=== PATIENT | female | born 1950 | race Caucasian/White ===

== ENCOUNTER 2021-07-19 14:29 | Outpatient (CLI) | payer MEDICARE, SELFPAY ==
--- NOTE | ~2021-07-19 | MM_ITS ---
EXAMINATION: MM screening heidy BI w david HISTORY: Screening TECHNIQUE: Craniocaudal and mediolateral oblique 3-D tomosynthesis images were obtained and synthetic 2-D images were generated. CAD analysis was submitted and interpreted. COMPARISON: 02/18/2019 BREAST PARENCHYMAL COMPOSITION: There are scattered areas of fibroglandular density. FINDINGS: There is no evidence of suspicious mass, calcification, or architectural distortion to sugg est malignancy in either breast. There has been no suspicious interval change. IMPRESSION: 1. No mammographic evidence of malignancy. 2. Recommend routine screening mammography in one year. BI-RADS Category 1: Negative Reviewed, dictated and finalized at location A.
== END 2021-07-19 14:30 | disposition home or self-care (01) ==
LOC: ANHIMG 14:35
DX: Z12.31 Encounter for screening mammogram for malignant neoplasm of breast (principal)
CPT/HCPCS: 77063; 77067

== ENCOUNTER 2022-09-27 10:09 | Outpatient (CLI) | payer MEDICARE, SELFPAY ==
--- NOTE | ~2022-09-27 | MM_ITS ---
EXAMINATION: MM screening heidy BI w david HISTORY: Screening mammogram, family history of breast cancer in her mother. TECHNIQUE: Craniocaudal and mediolateral oblique 3-D tomosynthesis images were obtained and synthetic 2-D images were generated. CAD analysis was submitted and interpreted. COMPARISON: 07/19/2021, 02/18/2019 BREAST PARENCHYMAL COMPOSITION: The breasts are almost entirely fatty. FINDINGS: No suspicious mass, calcification, or architectural distortion are identified in either scarlet ast to suggest malignancy. There has been no suspicious interval change. IMPRESSION: 1. No mammographic evidence of malignancy. 2. Recommend routine screening mammography in one year. BI-RADS Category 1: Negative Reviewed, dictated and finalized at location A. SHOVELER
== END 2022-09-27 10:10 | disposition home or self-care (01) ==
DX: Z12.31 Encounter for screening mammogram for malignant neoplasm of breast (principal)
CPT/HCPCS: 77063; 77067

== ENCOUNTER 2024-02-06 15:24 | Outpatient (CLI) | payer MEDICARE, SELFPAY ==
--- NOTE | ~2024-02-06 | DEXA_ITS ---
Bone Density Report Name: JADYN GALINDO Age: 73 Sex: Female Ethnicity: White Date of : 1950 Indication: postmenopausal; screening for osteoporosis; hysterectomy; Referring Provider: UNKNOWN, UNKNOWN Study: Bone densitometry was performed. Exam Date: February 06, 2024 Accession number: [id number] Bone Density: Region BMD T-score Z-score Classification Femoral Neck (Left) 0.555 -2.6 -0.7 Osteoporosis Total Hip (Left) 0.607 -2.7 -1.1 Osteoporosis Femoral Neck (Right) 0.645 -1.8 0.1 Osteopenia Total Hip (Right) 0.703 -2.0 -0.4 Osteopenia Total Hip Mean 0.655 -2.4 -0.8 Osteopenia World Health Organization criteria for BMD impression classify patients as: Normal (T-score at or above -1.0), Osteopenia (T-score between -1.0 and -2.5), or Osteoporosis (T-score at or below -2.5). 10-year Fracture Risk: FRAX not reported because: Some T-score for Spine Total or Hip Total or Femoral Neck at or below -2.5 Clinical Information Provided by Patient: Has used the following medications: Vitamin D Has the following medical conditions: Hysterectomy Patient maximum height was 62 Menopause Age: 42 No regular weight bearing exercise Drinks caffeinated beverages Onset of menses at age 11.5 Number of children 3 Impression: The patient has osteoporosis, based on the Left Total Hip T-score. Discussion: INCREASED RISK OF FRACTURE. BONE DENSITY IS UNDESIRABLY LOW AT ONE OR MORE SKELETAL SITES, CONSISTENT WITH POSTMENOPAUSAL OSTEOPOROSIS. This patient's lowest T-score meets the World Health Organization's (WHO) criteria for osteoporosis at one or more sites (T-score -2.5 or below). In untreated patients, the risk of osteoporotic fracture increases approximately two-fold for each 1.0 SD decrease in T-score. Low bone density is not the only risk factor for fracture; also consider factors such as patient's age, frailty or poor health, risk of falling, risk of injury, previous osteoporotic fracture, family history of osteoporosis, cigarette smoking, low body weight, etc. Not everyone with low bone mineral density has osteoporosis; osteomalacia and other metabolic bone disorders should also be considered. Patients who have osteoporosis should be evaluated for specific diseases and conditions (secondary causes) that may cause or contribute to bone loss. The [place] Association of Clinical Endocrinologists (AACE) and National Osteoporosis Foundation (NOF) recommend pharmacologic intervention for all postmenopausal women whose T-score is in this range. The patient should follow a healthful lifestyle (good nutrition with adequate calcium and vitamin D, and appropriate weight-bearing exercise). Follow-Up: Consider a repeat BMD and Vertebral Fracture Assessment (VFA) exam in 2 years or sooner if medically necessary, to reassess this patient'
--- NOTE | ~2024-02-06 | MM_ITS ---
EXAMINATION: MM screening heidy BI w david HISTORY: Screening TECHNIQUE: Craniocaudal and mediolateral oblique 3-D tomosynthesis images were obtained and synthetic 2-D images were generated. CAD analysis was submitted and interpreted. COMPARISON: Comparison to multiple prior studies sequentially, with oldest reviewed study dated 10/2018. BREAST PARENCHYMAL COMPOSITION: Not dense: There are scattered areas of fibroglandular density. FINDINGS: There is no evidence of suspicious mass, calcification, or architectural distortion to sugg est malignancy in either breast. There has been no suspicious interval change. IMPRESSION: 1. No mammographic evidence of malignancy. 2. Recommend routine screening mammography in one year. BI-RADS Category 1: Negative Reviewed, dictated and finalized at location B.
== END 2024-02-06 15:25 | disposition home or self-care (01) ==
DX: Z12.31 Encounter for screening mammogram for malignant neoplasm of breast (principal); Z78.0 Asymptomatic menopausal state; M81.0 Age-related osteoporosis without current pathological fracture; M85.851 Other specified disorders of bone density and structure, right thigh
CPT/HCPCS: 77063; 77067; 77080

== ENCOUNTER 2025-03-12 13:25 | Outpatient (CLI) | payer MEDICARE, SELFPAY ==
--- NOTE | ~2025-03-12 | MM_ITS ---
EXAMINATION: MM screening heidy BI w david HISTORY: Screening TECHNIQUE: Craniocaudal and mediolateral oblique 3-D tomosynthesis images were obtained and synthetic 2-D images were generated. CAD analysis was submitted and interpreted. COMPARISON: Comparison to multiple prior studies sequentially, with oldest reviewed study dated 10/2018. BREAST PARENCHYMAL COMPOSITION: Not dense: There are scattered areas of fibroglandular density. FINDINGS: There is no evidence of suspicious mass, calcification, or architectural distortion to sugg est malignancy in either breast. There has been no suspicious interval change. IMPRESSION: 1. No mammographic evidence of malignancy. 2. Recommend routine screening mammography in one year. BI-RADS Category 1: Negative Reviewed, dictated and finalized at location B.
--- OUTSIDE RECORDS SUMMARY | 2025-03-12 13:28 | XMS_ITS | Encounter Summary ---
Author Organization [facility] Address [address] [place] [address] Care Team Providers Care Vegetable Grader Name Role Phone Keith Gentile MD Primary Care Provider [phone] Encounter Details Date Type Department Care Team (Late st Contact Info) Description 03/05/2006 Outpatient Historical [facility] Internal Medicine - [place] [address] [place] [address] [place] [address] [place] [address] Social History Tobacco Use Types Packs/Day Years Used Date Smoking Tobacco: Never Assessed Comments Unknown Sex and Gender Information Value Date Recorded Sex Assigned at Female 07/24/2024 7:16 PM CDT 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 [place] [address] Keith Gentile MD 1000 [facility] [address] [place] [address] documented as of this encounter Visit Diagnoses Not on filedocumented in this encounter Additional Health Concerns Infection Onset Date Last Indicated Resolved Time R/O COVID-19 05/03/2022 05/03/2022 05/10/2022 1:16 AM CDT documented as of this encounter Care Teams Vegetable Grader Relationship Specialty Start Date End Date Keith Gentile MD [address] [place] [address] PCP - General Internal Medicine 03/22/15 documented as of this encounter
--- OUTSIDE RECORDS SUMMARY | 2025-03-12 13:28 | XMS_ITS | Encounter Summary ---
Author Organization [facility] Address 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 [place] [address] Keith Gentile MD 1000 [facility] [address] [place] [address] documented as of this encounter Visit Diagnoses Diagnosis Displacement of lumbar intervertebral disc without myelopathy- Primary documented in this encounter Additional Health Concerns Infection Onset Date Last Indicated Resolved Time R/O COVID-19 05/03/2022 05/03/2022 05/10/2022 1:16 AM CDT documented as of this encounter Care Teams Linoleum Floor Installer Relationship Specialty Start Date End Date Keith Gentile MD [address] [place] [phone] PCP - General Internal Medicine 03/22/15 documented as of this encounter
--- OUTSIDE RECORDS SUMMARY | 2025-03-12 13:28 | XMS_ITS | Encounter Summary ---
Author Organization [facility] Address [address] [place] [address] Care Team Providers Care In Home Baby Sitter Name Role Phone Keith Gentile MD Primary Care Provider [phone] Encounter Details Date Type Department Care Team (Late st Contact Info) Description 10/23/2006 Orders Only [facility] Internal Medicine - [place] [address] [place] [address] [place] [address] [place] [phone] Social History Tobacco Use Types Packs/Day Years Used Date Smoking Tobacco: Never Assessed Comments Unknown Sex and Gender Information Value Date Recorded Sex Assigned at Female 07/24/2024 7:16 PM CDT 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 LAST VISIT: 10.07.06 PCP: robel. ALTERNATIVE PHONE NUMBER: [phone] WHO CALLED: Patient called. CURRENT ALLERGY LIST: [facility] NUMBER: [phone] SECTION 1: REQUESTED ACTION [email or web address] 10/23/06 at 11:18 am: NEXT STEP: Patient is no better and wants to know the next step. still having discomfort but not the pain she was having...she is relieving with tylenol. napracin worked..but supplemented with tylenol. so she quit the napacin and now is taking the celebrex. pt is requesting medrol pack because the epidural shot on 09-23-06 is wearing off. she has surgery on 11.01.06 but needs something to get her through until then. please advise? SECTION 2: DOCTOR`S RESPONSE: gabriela 10/23/06 at 12:58 pm MEDICATIONS: MEDROL (UBALDO) ORAL TABLET 4 MG, as directed, 1 Dispensed, status: NEW PRESCRIPTION, 10/23/2006. FINAL ACTION: radha 10/23/06 at 01:49 pm Called pharmacy at 10/23/06 at 01:49 pm. hr Electronically Signed by: Rupali Pete on Monday, October 23, 2006 documented in this encounter Plan of Treatment Upcoming Encounters Date Type Department Care Team (Late st Contact Info) Description 08/16/2025 11:00 AM CDT Office Visit [facility] Care - [facility], [place] [place] [address] [place] [address] Keith Gentile MD [address] [place] [address] [place] [address] documented as of this encounter Visit Diagnoses Not on filedocumented in this encounter Additional Health Concerns Infection Onset Date Last Indicated Resolved Time R/O COVID-19 05/03/2022 05/03/2022 05/10/2022 1:16 AM CDT documented as of this encounter Care Teams In Home Baby Sitter Relationship Specialty Start Date End Date Keith Gentile MD [address] [place] [address] [place] [address] PCP - General Internal Medicine 03/22/15 documented as of this encounter
--- OUTSIDE RECORDS SUMMARY | 2025-03-12 13:28 | XMS_ITS | Encounter Summary ---
Author Organization [facility] Address [address] [place] [address] Care Team Providers Care Formation Fracturing Operator Name Role Phone Keith Gentile MD Primary Care Provider [phone] Encounter Details Date Type Department Care Team (Late st Contact Info) Description 02/28/2007 Orders Only [facility] Internal Medicine - [place] [address] [place] [address] [place] [address] [place] [phone] Social History Tobacco Use Types Packs/Day Years Used Date Smoking Tobacco: Never Assessed Comments Unknown Sex and Gender Information Value Date Recorded Sex Assigned at Female 07/24/2024 7:16 PM CDT Legal Sex Female 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 WHO TOOK THE CALL: Rupali Pete A GENERAL INFORMATION PATIENT STATUS: Established Patient. LAST VISIT: 10-07-06 PCP: robel WHO CALLED: Patient called. ALTERNATIVE PHONE NUMBER: [phone] CURRENT ALLERGY LIST: [facility] NUMBER: [phone] SECTION 1: REQUESTED ACTION danielle 02/28/07 at 10:44 am: MEDICATION REQUEST: MEDICATION REQUEST: Patient requests a refill. MEDICATIONS: CELEBREX ORAL CAPSULE CONVENTIONAL 200 MG, 1 Two Times A Day, As Needed, 180 Dispensed, 3 Fills, status: NEW PRESCRIPTION, 02/15/2006, Comment: pa [phone] 9:43am df. ok to refill? RN/COMBINATION MACHINE TOOL SETTER RESPONSE: kory 02/28/07 at 11:28 am Refill this time only, no additional. FINAL ACTION: forndl 02/28/07 at 12:35 pm Called pharmacy at 02/28/07 at 12:35 pm. df/vm Electronically Signed by: Dionne Duran on Wednesday, February 28, 2007 documented in this encounter Plan of Treatment Upcoming Encounters Date Type Department Care Team (Late st Contact Info) Description 08/16/2025 11:00 AM CDT Office Visit [facility] Primary Care - [facility], [address] [place] [address] Keith Gentile MD [address] [place] [address] documented as of this encounter Visit Diagnoses Not on filedocumented in this encounter Additional Health Concerns Infection Onset Date Last Indicated Resolved Time R/O COVID-19 05/03/2022 05/03/2022 05/10/2022 1:16 AM CDT documented as of this encounter Care Teams Formation Fracturing Operator Relationship Specialty Start Date End Date Keith Gentile MD [address] [place] [address] PCP - General Internal Medicine 03/22/15 documented as of this encounter
--- OUTSIDE RECORDS SUMMARY | 2025-03-12 13:28 | XMS_ITS | Encounter Summary ---
Author Organization [facility] Address [address] [place] [address] Care Team Providers Care Therapy Site Coordinator Name Role Phone Keith Gentile MD Primary Care Provider [phone] Encounter Details Date Type Department Care Team (Latest Contact Info) Description 11/12/2006 Outpatient Historical [facility] Brett Cleary MD NO ADDRESS ON FILE Degeneration of Lumbar or Lumbosacral Intervertebral Disc (Primary Dx) Social History Tobacco Use Types Packs/Day Years Used Date Smoking Tobacco: Never Assessed Comments Unknown Sex and Gender Information Value Date Recorded Sex Assigned at Female 07/24/2024 7:16 PM CDT Legal Sex Female 4:55 AM 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 [place] [address] Keith Gentile MD 1000 [facility] [address] [place] [address] documented as of this encounter Visit Diagnoses Diagnosis Degeneration of lumbar or lumbosacral intervertebral disc- Primary documented in this encounter Additional Health Concerns Infection Onset Date Last Indicated Resolved Time R/O COVID-19 05/03/2022 05/03/2022 05/10/2022 1:16 AM CDT documented as of this encounter Care Teams Therapy Site Coordinator Relationship Specialty Start Date End Date Keith Gentile MD [address] [place] [phone] PCP - General Internal Medicine 03/22/15 documented as of this encounter
--- OUTSIDE RECORDS SUMMARY | 2025-03-12 13:28 | XMS_ITS | Encounter Summary ---
Author Organization [facility] Address [address] [place] [address] Care Team Providers Care Commissary Helper Name Role Phone Keith Gentile MD Primary Care Provider [phone] Encounter Details Date Type Department Care Team (Latest Contact Info) Description 02/26/2008 Outpatient Historical [facility], [address] [place] [address] [place] [address] Abdominal Pain, Right Upper Quadrant Social History Tobacco Use Types Packs/Day Years Used Date Smoking Tobacco: Never Alcohol Use Standard Drinks/Week Comments Yes 0 (1 standard drink = 0.6 oz pur e alcohol) Comments No Sex and Gender Information Value Date Recorded Sex Assigned at Female 07/24/2024 7:16 PM CDT 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 [place] [address] Keith Gentile MD [address] [place] [address] documented as of this encounter Visit Diagnoses Diagnosis Abdominal pain, right upper quadrant documented in this encounter Additional Health Concerns Infection Onset Date Last Indicated Resolved Time R/O COVID-19 05/03/2022 05/03/2022 05/10/2022 1:16 AM CDT documented as of this encounter Care Teams Commissary Helper Relationship Specialty Start Date End Date Keith Gentile MD [address] [place] [address] PCP - General Internal Medicine 03/22/15 documented as of this encounter
--- OUTSIDE RECORDS SUMMARY | 2025-03-12 13:28 | XMS_ITS | Encounter Summary ---
Author Organization [facility] Address 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 LAST VISIT: 10.07.06 PCP: roble. ALTERNATIVE PHONE NUMBER: home [phone] or cell [phone] WHO CALLED: Patient called. CURRENT ALLERGY LIST: [facility] NUMBER: [phone] SECTION 1: REQUESTED ACTION evandm 02/06/07 at 04:17 pm: pt is having a bout with her psoriasis and is broken out all over. she would like to know if you can give her some prednisone again? *she is aware this will not be answered until tomorrow morning and would prefer it be in the morning* please advise?? please let Jesusita know when this comes back and I will do this!!!!! SECTION 2: DOCTOR`S RESPONSE: [email or web address] 02/06/07 at 06:42 pm MEDICATIONS: MEDROL (UBALDO) ORAL TABLET 4 MG, as directed, 1 Dispensed, status: CONTINUED, 02/06/2007. pls let herknow FINAL ACTION: [email or web address] 02/07/07 at 08:04 am Left message on patient`s recorder or with a family member 02/07/2007 at 08:04 am. sk Called pharmacy at 02/07/07 at 08:04 am. sk Electronically Signed by: Florence Hodges on Wednesday, February 07, 2007 documented in this encounter Plan of Treatment Upcoming Encounters Date Type Department Care Team (Late st Contact Info) Description 08/16/2025 11:00 AM CDT Office Visit [facility] Primary Care - [facility] [address] [place] [address] Keith Gentile MD [address] [place] [address] [place] [address] documented as of this encounter Visit Diagnoses Not on filedocumented in this encounter Additional Health Concerns Infection Onset Date Last Indicated Resolved Time R/O COVID-19 05/03/2022 05/03/2022 05/10/2022 1:16 AM CDT documented as of this encounter Care Teams Metal Fabricator Relationship Specialty Start Date End Date Keith Gentile MD [address] [place] [address] [place] [address] PCP - General Internal Medicine 03/22/15 documented as of this encounter
--- OUTSIDE RECORDS SUMMARY | 2025-03-12 13:28 | XMS_ITS | Encounter Summary ---
Author Organization [facility] Address [address] [place] [address] Care Team Providers Care Wallpaper Scraper Name Role Phone Keith Gentile MD Primary Care Provider [phone] Encounter Details Date Type Department Care Team (Late st Contact Info) Description 10/07/2006 Outpatient Historical [facility] Jaki Fried MD NO ADDRESS ON FILE Er, Authorized P NO ADDRESS ON FILE Tietze's Disease (Primary Dx) Social History Tobacco Use Types Packs/Day Years Used Date Smoking Tobacco: Never Assessed Comments Unknown Sex and Gender Information Value Date Recorded Sex Assigned at Female 07/24/2024 7:16 PM CDT Legal Sex Female 4:55 AM BOAT DECKHAND Gender Identity Female 07/24/2024 7:16 PM CDT Sexual Orientation Straight 07/24/2024 7: 16 PM CDT documented as of this encounter Plan of Treatment Upcoming Encounters Date Type Department Care Team (Late st Contact Info) Description 08/16/2025 11:00 AM CDT Office Visit [facility] Primary Care - [facility], [place] [address] [facility] [place] [place] [address] Keith Gentile MD [address] [facility] [address] [address] documented as of this encounter Procedures Procedure Name Priority Date/Time Associated Diagnosis Comments TROPONIN (W/REFLEX CKMB/CK) Routine 10/07/2006 6:12 PM BOAT DECKHAND PT AND APTT Routine 10/07/2006 6:12 PM BOAT DECKHAND CBC WITH DIFFERENTIAL Routine 10/07/2006 6:12 PM BOAT DECKHAND CBC WITH DIFFERENTIAL Routine 10/07/2006 6:12 PM BOAT DECKHAND D-DIMER Routine 10/07/2006 6:12 PM BOAT DECKHAND documented in this encounter Results * CBC WITH DIFFERENTIAL (10/07/2006 6:12 PM BOAT DECKHAND) Pathologist [facility] NEUTROPHILS 66 45 - 70 % INTERFAC E SYSTEM LYMPHOCYTES 27 16 - 45 % INTERFAC E SYSTEM MONOCYTES 6 3 - 13 % INTERFACE SYSTEM EOSINOPHILS 1 0 - 7 % INTERFAC E SYSTEM BASOPHILS 1 0 - 2 % INTERFACE SYSTEM NEUTROPHIL ABSOLUTE 5.04 1.90 - 7.00 K/uL INTERFACE SYSTEM LYMPHOCYTE ABSOLUTE 2.07 0.70 - 4.50 K/uL INTERFACE SYSTEM MONOCYTE ABSOLUTE 0.42 0.10 - 1.30 K/uL INTERFACE SYSTEM EOSINOPHIL ABSOLUTE 0.07 0.00 - 0.70 K/uL INTERFACE SYSTEM BASOPHILS ABSOLUTE 0.04 0.00 - 0.20 K/uL INTERFACE SYSTEM 10/07/2006 6:12 PM BOAT DECKHAND us Jaki Fried MD HEMATOLOGY ORDERABLES Final Resu lt INTERFACE SYSTEM Refer to clinic/hospital department * (ABNORMAL) CBC WITH DIFFERENTIAL (10/07/2006 6:12 PM BOAT DECKHAND) Pathologist [facility] WBC 7.6 4.0 - 9.8 K/uL INTERFACE SYSTEM RBC 5.00(H) 3.90 - 4.90 M/uL INTERFACE SYSTEM HEMOGLOBIN 15.3(H) 11.8 - 14.8 g/dL INTERFACE SYSTEM HEMATOCRIT 44.8(H) 35.5 - 44.0 % INTERFACE SYSTEM MCV 89.6 82.0 - 99.0 fL INTERFACE SYSTEM MCH 30.6 27.2 - 32.6 pg INTERFACE SYSTEM MCHC 34.2 31.5 - 35.5 % INTERFACE SYSTEM RDW 12.4 11.5 - 14.5 % INTERFACE SYSTEM RDW-STDEV 40.4 37.1 - 48.7 fL INTERFACE SYSTEM PLATELETS 305 140 - 350 K/uL INTERFACE SYSTEM MPV 10.7 9.3 - 12.4 fL INTERFACE SYSTEM 10/07/2006 6:12 PM BOAT DECKHAND Jaki Fried MD HEMATOLOGY ORDERABLES Final Resu lt Performing Organization Address [facility] Phone Number INTERFACE SYSTEM Refer to clinic/hospital department * PT AND APTT (10/07/2006 6:12 PM BOAT DECKHAND) PROTIME 12.9 12.7 - 15.1 Seconds INTERFACE SYSTEM INR 0.9 0.9 - 1.1 INTERFACE SYSTEM Comment: INR Therapeutic Range: Adult: 2.0 - 3.0 for pulmonary embolism or prophylaxis against venous thrombosis or systemic embolization. 2.0 - 3.0 for patients with tissue heart valves. 2.5 - 3.5 for patients with mechanical heart valves or post [place]. Pediatric (12 years and under): 1.5 - 3.0 Although the target range in children is not well established , INR values of 1.5 - 3.0 are recommended for most patients. Higher values have been used in children with prosthetic cardiac valves and hereditary clotting disorders. (<3 days) therapeutic ranges have not been established. PROTIME COMMENT Slightly Hemolyzed INTERFACE SYSTEM PTT 28.1 24.4 - 36.4 Seconds INTERFACE SYSTEM Comment: PTT Therapeutic Range: Heparin Level PTT (seconds) <0.10 units/mL <53 0.10 - 0.30 units/mL 53 - 67 0.30 - 0.70 units/mL* 67 - 95* 0.70 - 1.00 units/mL 95 - 116 *corresponds to therapeutic range for unfractionated heparin PTT COMMENT Slightly Hemolyzed INTERFACE SYSTEM 10/07/2006 6:12 PM BOAT DECKHAND Jaki Fried MD HEMATOLOGY ORDERABLES Final Resu lt Performing Organization Address [facility] Phone Number INTERFACE SYSTEM Refer to clinic/hospital department * D-DIMER (10/07/2006 6:12 PM BOAT DECKHAND) D-DIMER QUANT 0.29 <=0.42 ug/mL FEU INTERFACE SYSTEM Comment: DVT Screen reference range <0.45 ug/mL FEU D. Dimer Interpretation: The reference range is not clearly established in uncomplicated pregnanc ies. Values above the upper limit of the reference range are common from the 31st to 40th week of . High negative predictive values for DVT have been reported with the current methodology, as part of a comprehensive medical examination, including risk stratification. 10/07/2006 6:12 PM BOAT DECKHAND Jaki Fried MD HEMATOLOGY ORDERABLES Final Resu lt Performing Organization Address [facility]/ZIP Co de Phone Number INTERFACE SYSTEM Refer to clinic/hospital department * TROPONIN (W/REFLEX CKMB/CK) (10/07/2006 6:12 PM BOAT DECKHAND) TROPONIN T <0.01 <=0.03 ng/mL INTERFACE SYSTEM TROPONIN T INTERP Negative INTERFACE SYSTEM 10/07/2006 6:12 PM BOAT DECKHAND Jaki Fried MD CHEMISTRY ORDERABLES Final Resul t Performing Organization Address [facility] Co de Phone Number INTERFACE SYSTEM Refer to clinic/hospital department documented in this encounter Visit Diagnoses Diagnosis Tietze's disease- Primary documented in this encounter Additional Health Concerns Infection Onset Date Last Indicated Resolved Time R/O COVID-19 05/03/2022 05/03/2022 05/10/2022 1:16 AM CDT documented as of this encounter Care Teams Wallpaper Scraper Relationship Specialty Start Date End Date Keith Gentile MD [address] [place] [address] PCP - General Internal Medicine 03/22/15 documented as of this encounter
--- OUTSIDE RECORDS SUMMARY | 2025-03-12 13:28 | XMS_ITS | Encounter Summary ---
Author Organization [facility] Address [address] [place] [address] Care Team Providers Care Mortgage Clerk Name Role Phone Keith Gentile MD Primary Care Provider [phone] Encounter Details Date Type Department Care Team (Late st Contact Info) Description 04/12/2006 Outpatient Historical [facility] Internal Medicine - [place] [address] [place] [address] [place] [address] [place] [id number] Social History Tobacco Use Types Packs/Day Years Used Date Smoking Tobacco: Never Assessed Comments Unknown Sex and Gender Information Value Date Recorded Sex Assigned at Female 07/24/2024 7:16 PM CDT Legal Sex Female 4:55 AM VISUALIZER Gender Identity Female 07/24/2024 7:16 PM CDT Sexual Orientation Straight 07/24/2024 7: 16 PM CDT documented as of this encounter Last Filed Vital Signs Vital Sign Reading Time Taken Comments Blood Pressure 140/80 04/12/2006 4:15 PM CDT Pulse - - Temperature 22.2 C (72 F) 04/12/2006 4:15 PM CDT Respiratory Rate - - Oxygen Saturation - - Inhaled Oxygen Concentration - - Weight 93.4 kg (206 lb) 04/12/2006 4:15 PM CDT Height - - Body Mass Index - - documented in this encounter Plan of Treatment Upcoming Encounters Date Type Department Care Team (Late st Contact Info) Description 08/16/2025 11:00 AM CDT Office Visit [facility] Primary Care - [facility] [address] [place] [place] [address] Keith Gentile MD [address] [place] [place] [address] documented as of this encounter Visit Diagnoses Not on filedocumented in this encounter Additional Health Concerns Infection Onset Date Last Indicated Resolved Time R/O COVID-19 05/03/2022 05/03/2022 05/10/2022 1:16 AM CDT documented as of this encounter Care Teams Mortgage Clerk Relationship Specialty Start Date End Date Keith Gentile MD [address] [place] [address] PCP - General Internal Medicine 03/22/15 documented as of this encounter
--- OUTSIDE RECORDS SUMMARY | 2025-03-12 13:28 | XMS_ITS | Encounter Summary ---
Author Organization [facility] Address [address] [place] [address] Care Team Providers Care President & Ceo [employer] Name Role Phone Keith Gentile MD Primary Care Provider [phone] Encounter Details Date Type Department Care Team (Late st Contact Info) Description 02/15/2006 Orders Only [facility] Internal Medicine - [place] [address] [place] [address] [place] [address] [place] [address] Social History Tobacco Use Types Packs/Day Years Used Date Smoking Tobacco: Never Assessed Comments Unknown Sex and Gender Information Value Date Recorded Sex Assigned at Female 07/24/2024 7:16 PM CDT 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 LAST VISIT: 07/14/04 PCP: ORIN WHO CALLED: Pharmacy called. ALTERNATIVE PHONE NUMBER: [phone] CURRENT ALLERGY LIST: [facility] NUMBER: [phone] SECTION 1: Pt was in with her on February 01 and you told her that she does not need to comein to be seen. And she has not been seen in 2 years. And she would like to get a script for Celebrex and she would like to get a year supply with 3 refills. SECTION 2: DOCTOR`S RESPONSE: gabriela 02/15/06 at 09:30 am MEDICATIONS: CELEBREX ORAL CAPSULE CONVENTIONAL 200 MG, 1 Two Times A Day, As Needed, 180 Dispensed, 3 Fills, status: NEW PRESCRIPTION, 02/15/2006. DOCTOR`S OTHER RESPONSE: she must have misunderstood- certainly not what i meant-ok to fill but must schedule for a pe FINAL ACTION: artemio 02/15/06 at 09:43 am Spoke with patient 02/15/06 at 09:43 am. df Pt will check schedule and call back for appt. df Called pharmacy at 02/15/06 at 09:43 am. df/vm *pt can't come in last week of March and your April calendar is not open yet (see office administrator regarding). Can you fit in sick slot sooner? Please advise. SECTION 3: DOCTOR`S RESPONSE: gabriela 02/15/06 at 01:35 pm DOCTOR`S OTHER RESPONSE: ok to fill and place in a sick slot FINAL ACTION: forndl 02/15/06 at 02:07 pm Left message on patient`s recorder or with a family member 02/15/2006 at 02:08 pm. df Electronically Signed by: Dionne Duran on Wednesday, February 15, 2006 documented in this encounter Plan of Treatment Upcoming Encounters Date Type Department Care Team (Late st Contact Info) Description 08/16/2025 11:00 AM CDT Office Visit [facility] Care - [facility], [place]. [address] [place] [place] [address] Keith Gentile MD [address] [place] [address] documented as of this encounter Visit Diagnoses Not on filedocumented in this encounter Additional Health Concerns Infection Onset Date Last Indicated Resolved Time R/O COVID-19 05/03/2022 05/03/2022 05/10/2022 1:16 AM CDT documented as of this encounter Care Teams President & Ceo [employer] Relationship Specialty Start Date End Date Keith Gentile MD [address] [place] [place] [address] PCP - General Internal Medicine 03/22/15 documented as of this encounter
--- OUTSIDE RECORDS SUMMARY | 2025-03-12 13:28 | XMS_ITS | Encounter Summary ---
Author Organization [facility] Address [address] [place] [address] Care Team Providers Care Singer Back Tender Name Role Phone Keith Gentile MD Primary Care Provider [phone] Encounter Details Date Type Department Care Team (Latest Contact Info) Description 10/24/2005 Outpatient Historical [facility] Brett Cleary MD NO ADDRESS ON FILE CERVICAL SPONDYLOSIS (Primary Dx) Social History Tobacco Use Types Packs/Day Years Used Date Smoking Tobacco: Never Assessed Comments Unknown Sex and Gender Information Value Date Recorded Sex Assigned at Female 07/24/2024 7:16 PM CDT Legal Sex Female 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 [place] [address] Keith Gentile MD 1000 [facility] [place] [place] [address] documented as of this encounter Visit Diagnoses Diagnosis Cervical spondylosis without myelopathy- Primary documented in this encounter Additional Health Concerns Infection Onset Date Last Indicated Resolved Time R/O COVID-19 05/03/2022 05/03/2022 05/10/2022 1:16 AM CDT documented as of this encounter Care Teams Singer Back Tender Relationship Specialty Start Date End Date Keith Gentile MD [address] [place] [place] [phone] PCP - General Internal Medicine 03/22/15 documented as of this encounter
--- OUTSIDE RECORDS SUMMARY | 2025-03-12 13:28 | XMS_ITS | Encounter Summary ---
Author Organization [facility] Address [address] [place] [address] Care Team Providers Care Assisted Living Nursing Director Name Role Phone Keith Gentile MD Primary Care Provider [phone] Encounter Details Date Type Department Care Team (Late st Contact Info) Description 03/05/2006 Outpatient Historical [facility] Internal Medicine - [place] [address] [place] [address] [place] [address] [place] [address] Social History Tobacco Use Types Packs/Day Years Used Date Smoking Tobacco: Never Assessed Comments Unknown Sex and Gender Information Value Date Recorded Sex Assigned at Female 07/24/2024 7:16 PM CDT 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, [place]. [address] [place] [place] [address] Keith Gentile MD [address] [facility] [address] [place] [address] documented as of this encounter Visit Diagnoses Not on filedocumented in this encounter Additional Health Concerns Infection Onset Date Last Indicated Resolved Time R/O COVID-19 05/03/2022 05/03/2022 05/10/2022 1:16 AM CDT documented as of this encounter Care Teams Assisted Living Nursing Director Relationship Specialty Start Date End Date Keith Gentile MD [address] [place] [place] [address] PCP - General Internal Medicine 03/22/15 documented as of this encounter
--- OUTSIDE RECORDS SUMMARY | 2025-03-12 13:28 | XMS_ITS | Encounter Summary ---
Author Organization [facility] Address [address] [place] [address] Care Team Providers Care Welding Pantograph Machine Operator Name Role Phone Keith Gentile MD Primary Care Provider [phone] Encounter Details Date Type Department Care Team (Late st Contact Info) Description 06/06/2007 Orders Only 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 Primary Care - [facility], [place] [place] [place] [address] Keith Gentile MD 1000 [facility] [address] [place] [address] documented as of this encounter Visit Diagnoses Not on filedocumented in this encounter Additional Health Concerns Infection Onset Date Last Indicated Resolved Time R/O COVID-19 05/03/2022 05/03/2022 05/10/2022 1:16 AM CDT documented as of this encounter Care Teams Welding Pantograph Machine Operator Relationship Specialty Start Date End Date Keith Gentile MD [address] [place] [address] PCP - General Internal Medicine 03/22/15 documented as of this encounter
--- OUTSIDE RECORDS SUMMARY | 2025-03-12 13:28 | XMS_ITS | Encounter Summary ---
Author Organization [facility] Address [address] [place] [address] Care Team Providers Care Game Designer/Creative Director Name Role Phone Keith Gentile MD Primary Care Provider [phone] Encounter Details Date Type Department Care Team (Latest Contact Info) Description 05/27/2007 Outpatient Historical [facility] Brett Cleary MD NO ADDRESS ON FILE Lumbosacral Spondylosis without Myelopathy (Primary Dx) Social History Tobacco Use Types Packs/Day Years Used Date Smoking Tobacco: Never Assessed Comments Unknown Sex and Gender Information Value Date Recorded Sex Assigned at Female 07/24/2024 7:16 PM CDT 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 [place] [address] Keith Gentile MD 1000 [facility] [address] [address] documented as of this encounter Visit Diagnoses Diagnosis Lumbosacral spondylosis without myelopathy- Primary documented in this encounter Additional Health Concerns Infection Onset Date Last Indicated Resolved Time R/O COVID-19 05/03/2022 05/03/2022 05/10/2022 1:16 AM CDT documented as of this encounter Care Teams Game Designer/Creative Director Relationship Specialty Start Date End Date Keith Gentile MD [address] [place] [phone] PCP - General Internal Medicine 03/22/15 documented as of this encounter
--- OUTSIDE RECORDS SUMMARY | 2025-03-12 13:28 | XMS_ITS | Encounter Summary ---
Author Organization [facility] Address 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 [place] [address] Keith Gentile MD 1000 [facility] [address] [address] documented as of this encounter Visit Diagnoses Diagnosis Scoliosis (and kyphoscoliosis), idiopathic- Primary documented in this encounter Additional Health Concerns Infection Onset Date Last Indicated Resolved Time R/O COVID-19 05/03/2022 05/03/2022 05/10/2022 1:16 AM CDT documented as of this encounter Care Teams Transit Coach Operator Relationship Specialty Start Date End Date Keith Gentile MD [address] [place] [phone] PCP - General Internal Medicine 03/22/15 documented as of this encounter
--- OUTSIDE RECORDS SUMMARY | 2025-03-12 13:28 | XMS_ITS | Encounter Summary ---
Author Organization [facility] Address [address] [place] [address] Care Team Providers Care Tester Sound Name Role Phone Keith Gentile MD Primary Care Provider [phone] Encounter Details Date Type Department Care Team (Latest Contact Info) Description 02/27/2008 Outpatient Historical [facility] [place] [address] [place] [address] Abdominal Pain, Right Upper Quadrant Social History Tobacco Use Types Packs/Day Years Used Date Smoking Tobacco: Never Alcohol Use Standard Drinks/Week Comments Yes 0 (1 standard drink = 0.6 oz pur e alcohol) Comments No Sex and Gender Information Value Date Recorded Sex Assigned at Female 07/24/2024 7:16 PM CDT 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 [place] [address] Keith Gentile MD [address] [place] [phone] documented as of this encounter Procedures Procedure Name Priority Date/Time Associated Diagnosis Comments CT ABDOMEN WO CONTRAST Stat 02/27/2008 2:59 PM CDT Abdominal Pain, Right Upper Quadrant documented in this encounter Results * CT ABDOMEN WO CONTRAST (02/27/2008 2:59 PM CDT) Anatomical Region Laterality Modality Abdomen Other 02/27/2008 2:59 PM CDT Narrative 02/27/2008 3:32 PM CDT [address] [address] [place], [place] [address] Admit Date: 02/27/2008 JESSICA GALINDO Sex: F Admit Prov: ZARI MANZANO Date: 1950 Primary Care Prov: ZARI MANZANO CMRN: [id number] [id number] [facility] Ordering Prov: N/A Accession Number: [id number] Interpretation Exam: CT of the abdomen. History: Pain. Scans were performed without intravenous contrast. The liver is free of distinct solid masses or evidence of hepatocellular disease. No abnormalities of bile ducts are seen. The gallbladder is surgically absent. The spleen is unremarkable. No pancreatic masses cyst or inflammation are identified. No renal cyst are seen. No renal stones are seen. No renal masses or obstruction is seen. The ureters descend without evidence of obstruction or displacement. No periaortic adenopathy is seen. No abnormalities of the visualized bowel loop and mesentery are identified. Conclusion: No convincing radiographic evidence of acute or active intra- abdominal disease. . Dictated by: DOTTIE SUNSHINE 02/27/2008 15:29 Electronically signed by: DOTTIE SUNSHINE 02/27/2008 15:32 Procedure Note Provider, Historical - 02/27/2008 [address] [place] [address] Admit Date: 02/27/2008 [place] JESSICA R Sex: F Admit Prov: ZARI MANZANO Date: 1950 Primary Care Prov: ZARI MANZANO CMRN: [id number] Room: [facility] SSN: [id number] IMAGING SERVICES Ordering Prov: N/A Interpretation Exam: CT of the abdomen. History: Pain. Scans were performed without intravenous contrast. The liver is freeof distinct solid masses or evidence of hepatocellular disease. No abnormalities of bile ducts are seen. The gallbladder is surgicallyabsent. The spleen is unremarkable. No pancreatic masses cyst or inflammationare identified. No renal cyst are seen. No renal stones are seen. Norenal masses or obstruction is seen. The ureters descend without evidenceof obstruction or displacement. No periaortic adenopathy is seen. No abnormalities of the visualized bowel loop and mesentery areidentified. Conclusion: No convincing radiographic evidence of acute or activeintra- abdominal disease. . Dictated by: DOTTIE SUNSHINE 02/27/2008 15:29 Electronically signed by: DOTTIE SUNSHINE 02/27/2008 15:32 J Mikey Manzano MD CT ORDERABLES Final Result documented in this encounter Visit Diagnoses Diagnosis Abdominal pain, right upper quadrant documented in this encounter Additional Health Concerns Infection Onset Date Last Indicated Resolved Time R/O COVID-19 05/03/2022 05/03/2022 05/10/2022 1:16 AM CDT documented as of this encounter Care Teams Tester Sound Relationship Specialty Start Date End Date Keith Gentile MD [address] [place] [address] PCP - General Internal Medicine 03/22/15 documented as of this encounter
--- OUTSIDE RECORDS SUMMARY | 2025-03-12 13:28 | XMS_ITS | Encounter Summary ---
Author Organization [facility] Address [address] [place] [address] Care Team Providers Care Assistant Front Desk Manager Name Role Phone Keith Gentile MD Primary Care Provider [phone] Encounter Details Date Type Department Care Team (Latest Contact Info) Description 01/22/2007 Outpatient Historical [facility] Brett Cleary MD NO ADDRESS ON FILE Follow-Up Examination, Following Other Surgery (Primary Dx) Social History Tobacco Use Types Packs/Day Years Used Date Smoking Tobacco: Never Assessed Comments Unknown Sex and Gender Information Value Date Recorded Sex Assigned at Female 07/24/2024 7:16 PM CDT Legal Sex Female 4:55 AM COP EXAMINER Gender Identity Female 07/24/2024 7:16 PM CDT Sexual Orientation Straight 07/24/2024 7: 16 PM CDT documented as of this encounter Plan of Treatment Upcoming Encounters Date Type Department Care Team (Late st Contact Info) Description 08/16/2025 11:00 AM CDT Office Visit [facility] Primary Care - [facility], [facility] [address] [place] [address] Keith Gentile MD [address] [place] [address] documented as of this encounter Visit Diagnoses Diagnosis Follow-up examination, following other surgery- Primary documented in this encounter Additional Health Concerns Infection Onset Date Last Indicated Resolved Time R/O COVID-19 05/03/2022 05/03/2022 05/10/2022 1:16 AM CDT documented as of this encounter Care Teams Assistant Front Desk Manager Relationship Specialty Start Date End Date Keith Gentile MD [address] [place] [phone] PCP - General Internal Medicine 03/22/15 documented as of this encounter
--- OUTSIDE RECORDS SUMMARY | 2025-03-12 13:28 | XMS_ITS | Encounter Summary ---
Author Organization [facility] Address [address] [place] [address] Care Team Providers Care Electric Operator Name Role Phone Meri Manzano MD Primary Care Provider Unavail able Keith Gentile MD Primary Care Provider [phone] Reason for Visit * Reason Onset Date Comments MEDICATION REFILL 02/02/2018 Encounter Details Date Type Department Care Team (Late st Contact Info) Description 02/02/2018 Refill [facility] [place], [place] [id number] Elda Vieira, SALES SUPERINTENDENT-DRYING FRAME OPERATOR [address] [place] [address] MEDICATION REFILL Social History Tobacco Use Types Packs/Day Years Used Date Smoking Tobacco: Never Smokeless Tobacco: Never Alcohol Use Standard Drinks/Week Comments Yes 0 (1 standard drink = 0.6 oz pur e alcohol) Comments No Sex and Gender Information Value Date Recorded Sex Assigned at Female 10/31/2021 2:21 PM CHANNEL MARKETING MANAGER Legal Sex Female 5:52 AM CHANNEL MARKETING MANAGER Gender Identity Female Sexual Orientation Straight 10/31/2021 2: 21 PM CHANNEL MARKETING MANAGER documented as of this encounter Functional Status * Is person deaf or have serious hearing difficulty? Answer Date of Assessment Author No 03/14/2017 10:40 AM Evelyn Brunner, RN * Is person blind or have serious difficulty seeing? Answer Date of Assessment Author No 03/14/2017 10:40 AM SANDYT Evelyn Harper RN * Does person have serious difficulty walking/climbing stairs? Answer Date of Assessment Author Yes 03/14/2017 10:40 AM SANDYT Evelyn Harper RN * Does person have difficulty dressing/bathing? Answer Date of Assessment Author Yes 03/14/2017 10:40 AM SANDYT Evelyn Harper RN * Does person have difficulty doing errands alone? Answer Date of Assessment Author Yes 03/14/2017 10:40 AM SANDYT Evelyn Harper RN documented as of this encounter Mental Status * Does person have difficulty concentrating/remembering/making decisions? Answer Entry Date Author No 03/14/2017 10:40 AM Evelyn Brunner RN documented in this encounter Plan of Treatment Upcoming Encounters Date Type Department Care Team (Late st Contact Info) Description 05/31/2025 10:45 AM CDT Procedure visit [facility] SIGNAL INSPECTOR [address] [facility] [address] [place] [phone] Terrance Snyder MD [address] [facility] [address] [place] [address] documented as of this encounter Visit Diagnoses Diagnosis Acute cystitis without hematuria Acute cystitis documented in this encounter Care Teams Electric Operator Relationship Specialty Start Date End Date Meri Manzano MD PCP - General Internal Medicine 07/20/14 02/25/18 Keith Gentile MD [address] [place] [address] PCP - General 02/26/18 documented as of this encounter
--- OUTSIDE RECORDS SUMMARY | 2025-03-12 13:28 | XMS_ITS | Encounter Summary ---
Author Organization [facility] Address [address] [place] [address] Care Team Providers Care Front End Architect Name Role Phone Keith Gentile MD Primary Care Provider [phone] Encounter Details Date Type Department Care Team (Latest Contact Info) Description 09/23/2007 Outpatient Historical [facility] Brett Cleary MD NO ADDRESS ON FILE Acquired Spondylolisthesis; Follow-Up Examination, Following Other Surgery; Arthrodesis Status Social History Tobacco Use Types Packs/Day Years Used Date Smoking Tobacco: Never Assessed Comments Unknown Sex and Gender Information Value Date Recorded Sex Assigned at Female 07/24/2024 7:16 PM CDT Legal Sex Female 4:55 AM 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 VALVE 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 Gender Identity Female 07/24/2024 7:16 PM CDT Sexual Orientation Straight 07/24/2024 7: 16 PM CDT documented as of this encounter Plan of Treatment Upcoming Encounters Date Type Department Care Team (Late st Contact Info) Description 08/16/2025 11:00 AM CDT Office Visit [facility] Primary Care - [facility] [address] [address] Keith Gentile MD [address] [facility] [address] [address] documented as of this encounter Visit Diagnoses Diagnosis Acquired spondylolisthesis Follow-up examination, following other surgery Arthrodesis status documented in this encounter Additional Health Concerns Infection Onset Date Last Indicated Resolved Time R/O COVID-19 05/03/2022 05/03/2022 05/10/2022 1:1 6 AM CDT documented as of this encounter Care Teams Front End Architect Relationship Specialty Start Date End Date Ketih Gentile MD [address] [place] [phone] PCP - General Internal Medicine 03/22/15 documented as of this encounter
--- OUTSIDE RECORDS SUMMARY | 2025-03-12 13:28 | XMS_ITS | Encounter Summary ---
Author Organization [facility] Address [address] [place] [address] Care Team Providers Care Bushing Press Operator Name Role Phone Keith Gentile MD Primary Care Provider [phone] Encounter Details Date Type Department Care Team (Late st Contact Info) Description 10/07/2006 Outpatient Historical [facility] Internal Medicine - [place] [address] [place] [address] [place] [address] [place] [address] Social History Tobacco Use Types Packs/Day Years Used Date Smoking Tobacco: Never Assessed Comments Unknown Sex and Gender Information Value Date Recorded Sex Assigned at Female 07/24/2024 7:16 PM CDT Legal Sex Female 4:55 AM PLUG ASSEMBLER Gender Identity Female 07/24/2024 7:16 PM CDT Sexual Orientation Straight 07/24/2024 7: 16 PM CDT documented as of this encounter Last Filed Vital Signs Vital Sign Reading Time Taken Comments Blood Pressure 132/84 10/07/2006 2:40 PM PLUG ASSEMBLER Pulse - - Temperature - - Respiratory Rate - - Oxygen Saturation - - Inhaled Oxygen Concentration - - Weight 93.4 kg (206 lb) 10/07/2006 2:40 PM PLUG ASSEMBLER Height - - Body Mass Index - - documented in this encounter Plan of Treatment Upcoming Encounters Date Type Department Care Team (Late st Contact Info) Description 08/16/2025 11:00 AM CDT Office Visit [facility] Primary Care - [facility], [place] [address] [place] [address] [address] [place] [address] Keith Gentile MD [address] [place] [address] documented as of this encounter Visit Diagnoses Not on filedocumented in this encounter Additional Health Concerns Infection Onset Date Last Indicated Resolved Time R/O COVID-19 05/03/2022 05/03/2022 05/10/2022 1:16 AM CDT documented as of this encounter Care Teams Bushing Press Operator Relationship Specialty Start Date End Date Keith Gentile MD [address] [place] [address] PCP - General Internal Medicine 03/22/15 documented as of this encounter
--- OUTSIDE RECORDS SUMMARY | 2025-03-12 13:28 | XMS_ITS | Encounter Summary ---
Author Organization [facility] Address [address] [place] [address] Care Team Providers Care Audit Intern Name Role Phone Keith Gentile MD Primary Care Provider [phone] Encounter Details Date Type Department Care Team (Latest Contact Info) Description 04/15/2006 Outpatient Historical [facility] Brett Cleary MD NO ADDRESS ON FILE Acquired Spondylolisthesis (Primary Dx) Social History Tobacco Use Types Packs/Day Years Used Date Smoking Tobacco: Never Assessed Comments Unknown Sex and Gender Information Value Date Recorded Sex Assigned at Female 07/24/2024 7:16 PM CDT Legal Sex Female 4:55 AM DIETETIC TECHNICIAN REGISTERED Gender Identity Female 07/24/2024 7:16 PM CDT Sexual Orientation Straight 07/24/2024 7: 16 PM CDT documented as of this encounter Plan of Treatment Upcoming Encounters Date Type Department Care Team (Late st Contact Info) Description 08/16/2025 11:00 AM CDT Office Visit [facility] Primary Care - [facility], [place] [address] [place] [address] Keith Gentile MD [address] [place] [address] documented as of this encounter Visit Diagnoses Diagnosis Acquired spondylolisthesis- Primary documented in this encounter Additional Health Concerns Infection Onset Date Last Indicated Resolved Time R/O COVID-19 05/03/2022 05/03/2022 05/10/2022 1:16 AM CDT documented as of this encounter Care Teams Audit Intern Relationship Specialty Start Date End Date Keith Gentile MD [address] [place] [phone] PCP - General Internal Medicine 03/22/15 documented as of this encounter
--- OUTSIDE RECORDS SUMMARY | 2025-03-12 13:28 | XMS_ITS | Encounter Summary ---
Author Organization [facility] Address [address] [place] [address] Care Team Providers Care Radioactivity Technician Name Role Phone Keith Gentile MD Primary Care Provider [phone] Encounter Details Date Type Department Care Team (Late st Contact Info) Description 03/05/2006 Outpatient Historical [facility] Internal Medicine - [place] [address] [place] [address] [place] [address] [place] [address] Social History Tobacco Use Types Packs/Day Years Used Date Smoking Tobacco: Never Assessed Comments Unknown Sex and Gender Information Value Date Recorded Sex Assigned at Female 07/24/2024 7:16 PM CDT Legal Sex Female 4:55 AM FLOWER ARRANGER Gender Identity Female 07/24/2024 7:16 PM CDT Sexual Orientation Straight 07/24/2024 7: 16 PM CDT documented as of this encounter Plan of Treatment Upcoming Encounters Date Type Department Care Team (Late st Contact Info) Description 08/16/2025 11:00 AM CDT Office Visit [facility] Primary Care - [facility], [address] [place] [address] Keith eGntile MD [address] [facility] [address] [place] [address] documented as of this encounter Visit Diagnoses Not on filedocumented in this encounter Additional Health Concerns Infection Onset Date Last Indicated Resolved Time R/O COVID-19 05/03/2022 05/03/2022 05/10/2022 1:16 AM CDT documented as of this encounter Care Teams Radioactivity Technician Relationship Specialty Start Date End Date Keith Gentile MD [address] [place] [address] PCP - General Internal Medicine 03/22/15 documented as of this encounter
--- OUTSIDE RECORDS SUMMARY | 2025-03-12 13:29 | XMS_ITS | Encounter Summary ---
Author Organization [facility] Address [address] [place] [address] Care Team Providers Care Industrial Automation Specialist Name Role Phone Keith Gentile MD Primary Care Provider [phone] Encounter Details Date Type Department Care Team (Latest Contact Info) Description 12/25/2006 Outpatient Historical [facility] Brett Cleary MD NO ADDRESS ON FILE Arthrodesis Status (Primary Dx) Social History Tobacco Use Types Packs/Day Years Used Date Smoking Tobacco: Never Assessed Comments Unknown Sex and Gender Information Value Date Recorded Sex Assigned at Female 07/24/2024 7:16 PM CDT Legal Sex Female 4:55 AM PODIATRIC ASSISTANT Gender Identity Female 07/24/2024 7:16 PM CDT Sexual Orientation Straight 07/24/2024 7: 16 PM CDT documented as of this encounter Plan of Treatment Upcoming Encounters Date Type Department Care Team (Late st Contact Info) Description 08/16/2025 11:00 AM CDT Office Visit [facility] Primary Care - [facility], [facility] [address] [place] [address] Keith Gentile MD [address] [facility] [address] [place] [address] documented as of this encounter Visit Diagnoses Diagnosis Arthrodesis status- Primary documented in this encounter Additional Health Concerns Infection Onset Date Last Indicated Resolved Time R/O COVID-19 05/03/2022 05/03/2022 05/10/2022 1:16 AM CDT documented as of this encounter Care Teams Industrial Automation Specialist Relationship Specialty Start Date End Date Keith Gentile MD [address] [place] [phone] PCP - General Internal Medicine 03/22/15 documented as of this encounter
--- OUTSIDE RECORDS SUMMARY | 2025-03-12 13:29 | XMS_ITS | Encounter Summary ---
Author Organization [facility] Address [address] [place] [address] Care Team Providers Care Policewoman Name Role Phone Keith Gentile MD Primary Care Provider [phone] Encounter Details Date Type Department Care Team (Late st Contact Info) Description 11/22/2006 Orders Only [facility] Internal Medicine - [place] [address] [place] [address] [place] [address] [place] [phone] Social History Tobacco Use Types Packs/Day Years Used Date Smoking Tobacco: Never Assessed Comments Unknown Sex and Gender Information Value Date Recorded Sex Assigned at Female 07/24/2024 7:16 PM CDT Legal Sex Female 4:55 AM READING INTERVENTION TEACHER Gender Identity Female 07/24/2024 7:16 PM CDT Sexual Orientation Straight 07/24/2024 7: 16 PM CDT documented as of this encounter Progress Notes * Meri Manzano MD - 03/12/2008 4:35 PM CDT TIME:01:41 pm PATIENT`S HOME PHONE: PATIENT`S WORK PHONE: PATIENT`S INSURANCE: [employer] [facility] WHO TOOK THE CALL: Sofia Fraga N GENERAL INFORMATION PATIENT STATUS: Established Patient. LAST VISIT: 10.07.06 PCP: robel WHO CALLED: Pharmacy called. CURRENT ALLERGY LIST: [facility] NUMBER: SECTION 1: REQUESTED ACTION carlyn 11/22/06 at 01:42 pm: MEDICATION REQUEST: MEDICATION REQUEST: Patient requests a refill. MEDICATIONS: MEDROL (UBALDO) ORAL TABLET 4 MG, as directed, 1 Dispensed, status: NEW PRESCRIPTION, 10/23/2006, Comment: vmp hr 1.49 . pt is at pharmacy now and says she spoke with you about a refill on this medication but i show nothing in her for it and you were on the other line...so i am sending you the message. please call in to above pharmacy number if this is ok and note it in her chart. thanks! pt called this time and would like for you to call her please. [phone]. thanks. FINAL ACTION: celeste 11/22/06 at 02:44 pm Called pharmacy at 11/22/06 at 02:44 pm. wg vm Electronically Signed by: Saba Peck on Wednesday, November 22, 2006 documented in this encounter Plan of Treatment Upcoming Encounters Date Type Department Care Team (Late st Contact Info) Description 08/16/2025 11:00 AM CDT Office Visit [facility] [address] [address] Keith Gentile MD [address] [place] [address] documented as of this encounter Visit Diagnoses Not on filedocumented in this encounter Additional Health Concerns Infection Onset Date Last Indicated Resolved Time R/O COVID-19 05/03/2022 05/03/2022 05/10/2022 1:16 AM CDT documented as of this encounter Care Teams Policewoman Relationship Specialty Start Date End Date Keith Gentile MD [address] [place] [address] PCP - General Internal Medicine 03/22/15 documented as of this encounter
--- OUTSIDE RECORDS SUMMARY | 2025-03-12 13:29 | XMS_ITS | Encounter Summary ---
Author Organization [facility] Address [address] [place] [address] Care Team Providers Care Orthopedically Impaired Teacher Name Role Phone Keith Gentile MD Primary Care Provider [phone] Encounter Details Date Type Department Care Team (Latest Contact Info) Description 07/30/2005 Outpatient Historical HIS PATIENT IN A BED Brett Cleary MD NO ADDRESS ON FILE CERVICAL SPONDYLOSIS (Primary Dx) Social History Tobacco Use Types Packs/Day Years Used Date Smoking Tobacco: Never Assessed Comments Unknown Sex and Gender Information Value Date Recorded Sex Assigned at Female 07/24/2024 7:16 PM CDT Legal Sex Female 4:55 AM RESERVATIONS AND TICKETING AGENT Gender Identity Female 07/24/2024 7:16 PM CDT Sexual Orientation Straight 07/24/2024 7: 16 PM CDT documented as of this encounter Plan of Treatment Upcoming Encounters Date Type Department Care Team (Late st Contact Info) Description 08/16/2025 11:00 AM CDT Office Visit [facility] Primary Care - [facility], [address] [place] [address] Keith Gentile MD [address] [place] [address] documented as of this encounter Procedures Procedure Name Priority Date/Time Associated Diagnosis Comments HEMOGLOBIN AND HEMATOCRIT Routine 07/13/2005 10:55 AM CDT documented in this encounter Results * HEMOGLOBIN AND HEMATOCRIT (07/13/2005 10:55 AM CDT) HEMOGLOBIN 14.4 11.8 - 14.8 g/dL INTERFACE SYSTEM HEMATOCRIT 41.1 35.5 - 44.0 % INTERFACE SYSTEM 07/13/2005 10:5 5 AM CDT us Brett Cleary MD HEMATOLOGY ORDERABLES Final Res ult INTERFACE SYSTEM Refer to clinic/hospital department documented in this encounter Visit Diagnoses Diagnosis Cervical spondylosis without myelopathy- Primary documented in this encounter Additional Health Concerns Infection Onset Date Last Indicated Resolved Time R/O COVID-19 05/03/2022 05/03/2022 05/10/2022 1:16 AM CDT documented as of this encounter Care Teams Orthopedically Impaired Teacher Relationship Specialty Start Date End Date Keith Gentile MD [address] [place] [address] PCP - General Internal Medicine 03/22/15 documented as of this encounter
--- OUTSIDE RECORDS SUMMARY | 2025-03-12 13:29 | XMS_ITS | Encounter Summary ---
Author Organization [facility] Address [address] [place] [address] Care Team Providers Care Needle Punch Operator Name Role Phone Keith Gentile MD Primary Care Provider [phone] Encounter Details Date Type Department Care Team (Latest Contact Info) Description 11/14/2004 Outpatient Historical [facility] Brett Cleary MD NO ADDRESS ON FILE SURGERY FOLLOWUP, OTHER (Primary Dx) Social History Tobacco Use Types Packs/Day Years Used Date Smoking Tobacco: Never Assessed Comments Unknown Sex and Gender Information Value Date Recorded Sex Assigned at Female 07/24/2024 7:16 PM CDT Legal Sex Female 4:55 AM HUMAN RESOURCES COMPENSATION ANALYST Gender Identity Female 07/24/2024 7:16 PM CDT Sexual Orientation Straight 07/24/2024 7: 16 PM CDT documented as of this encounter Plan of Treatment Upcoming Encounters Date Type Department Care Team (Late st Contact Info) Description 08/16/2025 11:00 AM CDT Office Visit [facility] Primary Care - [facility], [facility] [address] [place] [address] Keith Gentile MD [address] [facility] [address] [place] [address] documented as of this encounter Visit Diagnoses Diagnosis Follow-up examination, following other surgery- Primary documented in this encounter Additional Health Concerns Infection Onset Date Last Indicated Resolved Time R/O COVID-19 05/03/2022 05/03/2022 05/10/2022 1:16 AM CDT documented as of this encounter Care Teams Needle Punch Operator Relationship Specialty Start Date End Date Keith Gentile MD [address] [place] [address] PCP - General Internal Medicine 03/22/15 documented as of this encounter
--- OUTSIDE RECORDS SUMMARY | 2025-03-12 13:29 | XMS_ITS | Encounter Summary ---
Author Organization [facility] Address [address] [place] [address] Care Team Providers Care Supervisor Estimator And Drafter Name Role Phone Keith Gentile MD Primary Care Provider [phone] Encounter Details Date Type Department Care Team (Latest Contact Info) Description 05/17/2009 Outpatient Historical [facility] L[facility] Pierre, Ki Licea MD NO ADDRESS ON FILE Abdominal Pain, Epigastric Social History Tobacco Use Types Packs/Day Years Used Date Smoking Tobacco: Never Alcohol Use Standard Drinks/Week Comments Yes 0 (1 standard drink = 0.6 oz pur e alcohol) Comments No Sex and Gender Information Value Date Recorded Sex Assigned at Female 07/24/2024 7:16 PM CDT Legal Sex Female 4:55 AM ADJUNCT FACULTY INSTRUCTOR Gender Identity Female 07/24/2024 7:16 PM CDT Sexual Orientation Straight 07/24/2024 7: 16 PM CDT documented as of this encounter Plan of Treatment Upcoming Encounters Date Type Department Care Team (Late st Contact Info) Description 08/16/2025 11:00 AM CDT Office Visit [facility] Primary Care - [facility], [place] [place] [place] [address] Keith Gentile MD 1000 [facility] [address] [place] [address] documented as of this encounter Procedures Procedure Name Priority Date/Time Associated Diagnosis Comments CBC WITH DIFFERENTIAL Routine 05/17/2009 11:29 AM CDT C-REACTIVE PROTEIN Routine 05/17/2009 11 :29 AM CDT GGT Routine 05/17/2009 11:29 AM CDT HEPATIC FUNCTION PANEL Routine 05/17/2009 11:29 AM CDT documented in this encounter Results * HEPATIC FUNCTION PANEL (05/17/2009 11:29 AM CDT) TOTAL PROTEIN 7.9 6.3 - 8.6 g/dL [facility] BILIRUBIN DIRECT 0.1 0.0 - 0.3 mg/dL [facility] AST 22 12 - 32 U/L [facility] ALBUMIN 4.5 3.4 - 4.8 g/dL [facility] BILIRUBIN TOTAL 0.4 0.2 - 1.0 mg/dL [facility] ALT 26 0 - 31 U/L [facility] ALKALINE PHOSPHATASE 76 35 - 104 U/L [facility] Blood specimen (specimen) 05/17/2009 11:29 AM CDT 05/17/2009 11:51 AM CDT Ki Pierre MD CHEMISTRY ORDERABL ES Final Result Performing Organization Address City/[facility]/ZIP Co de Phone Number [facility] CLIA# [id number] [address] [facility] [place] [place] [address] * GGT (05/17/2009 11:29 AM CDT) GGT 23 5 - 36 U/L [facility] Blood specimen (specimen) 05/17/2009 11:29 AM CDT 05/17/2009 11:51 AM CDT Ki Pierre MD CHEMISTRY ORDERABL ES Final Result [facility] CLIA# [id number] [address] [place] [address] * C-REACTIVE PROTEIN (05/17/2009 11:29 AM CDT) [facility] CRP 0.2 0.0 - 0.8 mg/dL [facility] Blood specimen (specimen) 05/17/2009 11:29 AM CDT 05/17/2009 11:51 AM CDT Ki Pierre MD CHEMISTRY ORDERABL ES Final Result [facility] CLIA# [id number] [address] [place] [address] * CBC WITH DIFFERENTIAL (05/17/2009 11:29 AM CDT) [facility] HEMATOCRIT 42.4 35.5 - 44.0 % [facility] RDW-STDEV 41.8 37.1 - 48.7 fL [facility] RBC 4.67 3.90 - 4.90 M/uL [facility] MCHC 34.0 31.5 - 35.5 % [facility] MPV 10.2 9.3 - 12.4 fL [facility] MCV 90.8 82.0 - 99.0 fL [facility] PLATELETS 311 140 - 350 K/uL [facility] HEMOGLOBIN 14.4 11.8 - 14.8 g/dL [facility] RDW 12.8 11.5 - 14.5 % [facility] WBC 6.2 4.0 - 9.8 K/uL [facility] MCH 30.8 27.2 - 32.6 pg [facility] BASOPHILS 1 0 - 2 % [facility] BASOPHILS ABSOLUTE 0.05 0.00 - 0.20 K/uL [facility] MONOCYTES 7 3 - 13 % [facility] MONOCYTE ABSOLUTE 0.44 0.10 - 1.30 K/uL [facility] NEUTROPHILS 61 45 - 70 % [facility] NEUTROPHIL ABSOLUTE 3.77 1.90 - 7.00 K/uL [facility] EOSINOPHILS 1 0 - 7 % [facility] EOSINOPHIL ABSOLUTE 0.08 0.00 - 0.70 K/uL [facility] LYMPHOCYTES 30 16 - 45 % [facility] LYMPHOCYTE ABSOLUTE 1.88 0.70 - 4.50 K/uL [facility] Blood specimen (specimen) 05/17/2009 11:29 AM CDT 05/17/2009 11:51 AM CDT Ki Pierre MD HEMATOLOGY ORDERAB LES Edited [facility] CLIA# [id number] [address] [place] [address] documented in this encounter Visit Diagnoses Diagnosis Abdominal pain, epigastric documented in this encounter Additional Health Concerns Infection Onset Date Last Indicated Resolved Time R/O COVID-19 05/03/2022 05/03/2022 05/10/2022 1:16 AM CDT documented as of this encounter Care Teams Supervisor Estimator And Drafter Relationship Specialty Start Date End Date Keith Gentile MD [address] [place] [address] PCP - General Internal Medicine 03/22/15 documented as of this encounter
--- OUTSIDE RECORDS SUMMARY | 2025-03-12 13:29 | XMS_ITS | Encounter Summary ---
Author Organization [facility] Address 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 [place] [address] Keith Gentile MD [address] [facility] [address] [address] documented as of this encounter Visit Diagnoses Diagnosis Other and unspecified disc disorder of cervical region- Primary documented in this encounter Additional Health Concerns Infection Onset Date Last Indicated Resolved Time R/O COVID-19 05/03/2022 05/03/2022 05/10/2022 1:16 AM CDT documented as of this encounter Care Teams Machine Steak Tenderizer Relationship Specialty Start Date End Date Keith Gentile MD [address] [place] [phone] PCP - General Internal Medicine 03/22/15 documented as of this encounter
--- OUTSIDE RECORDS SUMMARY | 2025-03-12 13:29 | XMS_ITS | Encounter Summary ---
Author Organization [facility] Address 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 Primary Care - [facility], [facility] [address] [address] Keith Gentile MD 1000 [facility] [address] [place] [address] documented as of this encounter Visit Diagnoses Diagnosis Congenital spondylolisthesis- Primary documented in this encounter Additional Health Concerns Infection Onset Date Last Indicated Resolved Time R/O COVID-19 05/03/2022 05/03/2022 05/10/2022 1:16 AM CDT documented as of this encounter Care Teams Watershed Program Manager Relationship Specialty Start Date End Date Keith Gentile MD [address] [place] [phone] PCP - General Internal Medicine 03/22/15 documented as of this encounter
--- OUTSIDE RECORDS SUMMARY | 2025-03-12 13:29 | XMS_ITS | Encounter Summary ---
Author Organization [facility] Address [address] [place] [address] Care Team Providers Care Small Order Cutter Name Role Phone Keith Gentile MD Primary Care Provider [phone] Encounter Details Date Type Department Care Team (Late Contact Info) Description 04/13/2008 Outpatient Historical [facility] Ki Pierre MD NO ADDRESS ON FILE Abdominal Tenderness, Unspecified Site Social History Tobacco Use Types Packs/Day Years Used Date Smoking Tobacco: Never Alcohol Use Standard Drinks/Week Comments Yes 0 (1 standard drink = 0.6 oz pur e alcohol) Comments No Sex and Gender Information Value Date Recorded Sex Assigned at Female 07/24/2024 7:16 PM CDT 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 [address] [place] [place] [address] Keith Gentile MD 1000 [facility] [address] [address] documented as of this encounter Procedures Procedure Name Priority Date/Time Associated Diagnosis Comments PATHOLOGY Routine 04/13/2008 3:22 PM CDT documented in this encounter Results * PATHOLOGY (04/13/2008 3:22 PM CDT) FINAL REPORT [facility] [address] [place], [place] [address] Patient: JESSICA GALINDO : 1950 Procedure Date: 04/13/2008 Accession Date: 04/13/2008 Case No: [id number] Ordering Dr: CLEM PIERRE Case types AW, BW, FW, NW and SH are performed by [facility] [place] [place], [place] SURGICAL PATHOLOGY & NON-GYNECOLOGIC CYTOPATHOLOGY REPORT DIAGNOSIS SMALL INTESTINE, DUODENUM, ENDOSCOPIC BIOPSY: - NO SIGNIFICANT HISTOPATHOLOGIC ALTERATIONS. LARGE INTESTINE, RANDOM ENDOSCOPIC BIOPSY: - NO SIGNIFICANT HISTOPATHOLOGIC ALTERATIONS. Specimen Description: (1) Small bowel biopsy; (2) random colon biopsy. Operative Procedure: Colonoscopy and EGD. Patient Information/Histor y/Diagnosis: (1) Small bowel Bx. Rule out sprue (chronic diarrhea and/or Fe-deficiency anemia). (2) Not provided. Gross: Received are two containers labeled Jessica Galindo. Received in the first container, additionally labeled small bowel biopsy, are five soto tissue fragments ranging from 0.1 to 0.5 cm in greatest dimension. The specimen is submitted in block A1. Received in the second container labeled random colon biopsy are three soto tissue fragments ranging from 0.3 to 0.5 cm in greatest dimension. The specimen is submitted in block B1. [facility] 04.13.2008 09:41 pm Microscopic: Received are slides labeled [id number]. Sections of small bowel sample duodenal mucosa. There is preservation of villous architecture. Surface epithelium is intact. Intraepithelial lymphocytes are not increased. Chronic inflammatory cells are unremarkable in distribution within the lamina propria. Substantial acute inflammatory changes are absent. Sections of random colon identify preservation of colonic gland architecture. Surface epithelium is intact. The subepithelial collagenous zone is subjectively of normal thickness. Intraepithelial lymphocytosis is absent. Chronic inflammatory cells are unremarkable in distribution within the lamina propria. Acute inflammatory changes are absent. [facility] 04.14.2008 11:14 am Staging Form: No. ELECTRONIC SIGNATURE FOR ADY RUELAS M.D.- 04/14/08 11:19 am INTERFACE SYSTEM 04/13/2008 3:22 PM CDT us Ki Pierre MD PATHOLOGY/CYTOLOGY ORDERABLES Final Result INTERFACE SYSTEM Refer to clinic/hospital department documented in this encounter Visit Diagnoses Diagnosis Abdominal tenderness, unspecified site documented in this encounter Additional Health Concerns Infection Onset Date Last Indicated Resolved Time R/O COVID-19 05/03/2022 05/03/2022 05/10/2022 1:16 AM CDT documented as of this encounter Care Teams Small Order Cutter Relationship Specialty Start Date End Date Keith Gentile MD [address] [place] [phone] PCP - General Internal Medicine 03/22/15 documented as of this encounter
--- OUTSIDE RECORDS SUMMARY | 2025-03-12 13:29 | XMS_ITS | Encounter Summary ---
Author Organization [facility] Address [address] [place] [address] Care Team Providers Care Tester Compressed Gases Name Role Phone Keith Gentile MD Primary Care Provider [phone] Encounter Details Date Type Department Care Team (Late st Contact Info) Description 12/21/2003 Outpatient Historical [facility] Internal Medicine - [place] [address] [place] [address] [place] [address] [place], [place] Social History Tobacco Use Types Packs/Day Years Used Date Smoking Tobacco: Never Assessed Comments Unknown Sex and Gender Information Value Date Recorded Sex Assigned at Female 07/24/2024 7:16 PM CDT 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 [place] [address] Keith Gentile MD 1000 [facility] [address] [place] [address] documented as of this encounter Visit Diagnoses Not on filedocumented in this encounter Additional Health Concerns Infection Onset Date Last Indicated Resolved Time R/O COVID-19 05/03/2022 05/03/2022 05/10/2022 1:16 AM CDT documented as of this encounter Care Teams Tester Compressed Gases Relationship Specialty Start Date End Date Keith Gentile MD [address] [place] [phone] PCP - General Internal Medicine 03/22/15 documented as of this encounter
--- OUTSIDE RECORDS SUMMARY | 2025-03-12 13:29 | XMS_ITS | Encounter Summary ---
Author Organization [facility] Address [address] [place] [address] Care Team Providers Care Superintendent Nonselling Name Role Phone Keith Gentile MD Primary Care Provider [phone] Encounter Details Date Type Department Care Team (Late st Contact Info) Description 12/21/2003 Outpatient Historical [facility] Internal Medicine - [place] [address] [place] [address] [place] [address] [place], [place] Social History Tobacco Use Types Packs/Day Years Used Date Smoking Tobacco: Never Assessed Comments Unknown Sex and Gender Information Value Date Recorded Sex Assigned at Female 07/24/2024 7:16 PM CDT 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 [place] [address] Keith Gentile MD 1000 [facility] [address] [place] [address] documented as of this encounter Visit Diagnoses Not on filedocumented in this encounter Additional Health Concerns Infection Onset Date Last Indicated Resolved Time R/O COVID-19 05/03/2022 05/03/2022 05/10/2022 1:16 AM CDT documented as of this encounter Care Teams Superintendent Nonselling Relationship Specialty Start Date End Date Keith Gentile MD [address] [place] [address] PCP - General Internal Medicine 03/22/15 documented as of this encounter
--- OUTSIDE RECORDS SUMMARY | 2025-03-12 13:29 | XMS_ITS | Encounter Summary ---
Author Organization [facility] Address 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 [place] [address] Keith Gentile MD [address] [place] [address] documented as of this encounter Visit Diagnoses Diagnosis Sprain of lumbar region- Primary documented in this encounter Additional Health Concerns Infection Onset Date Last Indicated Resolved Time R/O COVID-19 05/03/2022 05/03/2022 05/10/2022 1:16 AM CDT documented as of this encounter Care Teams Retail Seasonal Specialist Relationship Specialty Start Date End Date Keith Gentile MD [address] [place] [phone] PCP - General Internal Medicine 03/22/15 documented as of this encounter
--- OUTSIDE RECORDS SUMMARY | 2025-03-12 13:29 | XMS_ITS | Encounter Summary ---
Author Organization [facility] Address 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 [place] [address] Keith Gentile MD [address] [facility] [address] [place] [address] documented as of this encounter Visit Diagnoses Diagnosis Follow-up examination, following other surgery- Primary documented in this encounter Additional Health Concerns Infection Onset Date Last Indicated Resolved Time R/O COVID-19 05/03/2022 05/03/2022 05/10/2022 1:16 AM CDT documented as of this encounter Care Teams Doughmaker Relationship Specialty Start Date End Date Kieth Gentile MD [address] [place] [address] PCP - General Internal Medicine 03/22/15 documented as of this encounter
--- OUTSIDE RECORDS SUMMARY | 2025-03-12 13:29 | XMS_ITS | Clinical Summary ---
Author Organization [employer] Address [address] [place] [address] Care Team Providers Care Maxillofacial Surgeon Name Role Phone Keith Gentile MD Primary Care Provider [phone] Allergies Active Allergy Reactions Criticality Noted Date Comments Iodine Swelling High 02/26/2008 Morphine Nausea and Vomiting High 06/24/2012 Only with IV morphine, not IM or in epidural Penicillins Hives High 12/21/2003 Sulfamethoxazole-Trimet hoprim Rash Medium 08/26/2020 Vancomycin Diarrhea Low 07/15/2019 Medications mirabegron (MYRBETRIQ) 25 mg Extended Release 24 hour tablet Take 50 mg by mouth daily. Active sucralfate (CARAFATE) 1 gram tablet Take 1 Gram by mouth 3 times daily as needed. Active SKYRIZI 150mg/1.66mL( 75 mg/0.83 mL x2) Syringe Kit Inject 150 mg by intramuscular injection. Every 3 months Active multivitamin (DAILY-BRIDGET) tablet Take 1 Tablet by mouth daily. Active diclofenac sodium (Voltaren) 1 % gelIndication s:Decreased mobility Apply 4 grams to right shoulder 4 times daily. 1000 Gram 3 06/15/20 24 Active 0.9 % sodium chloride (sodium chloride 0.9%, PVC free,) Parenteral Solution 50 mL by Irrigation route daily. 09/09/20 23 Active cetirizine (ZyrTEC) 10 mg tablet Take 10 mg by mouth daily. Active ertapenem (INVanz) 1 gram Recon Soln Patient mixes 5 grams ertapenem in normal saline to instill into bladder through suprapubic catheter every 40 days for recurrent UTI. Dispense 10 vials. 03/30/20 24 Active ketoconazole (NIZORAL) 2 % Cream as needed 09/09/20 21 Active nitrofurantoi n (MACROBID) 100 mg capsule TAKE 1 CAPSULE BY MOUTH TWICE A DAY WITH MORNING AND EVENING MEAL 05/06/20 23 Active Botox 200 unit Recon Soln INJECT 200 UNITS INTO MUSCLE NEEDED. Active sodium chloride 0.9% irrigation Solution Patient needs 50cc vials x 10 vials. Will mix with Ertapenem (from Specialty pharm) for bladder instillation through sp catheter daily x 10 days. 03/23/20 24 Active tobramycin (NEBCIN) 40 mg/mL Solution Pt to get 6 vials of 40 mg / ml tobramycin . She will reconstitute 2 mg / ml vials at a time to equal 80 mg / 2 ml of tobramycin. She will use 100 cc nacl to reconstitute . This will be instilled into her bladder via her suprapubic catheter prior to her botox injection . Another dose to be done day of injection Reasons: Recurrent Urinary Tract Infection 11/21/19 23 Active cholecalcifer ol, Vitamin D3, 125 mcg (5,000 unit) Capsule Take 5,000 Units by mouth daily. Active [employer] Beasy Glyder board (curved 32 inch) - needed to make safe transfers in order to prevent falls and to ensure proper placement onto mattress to prevent pressure ulcers; Dx: G82.20 and S34.109A 1 Each 08/11/20 24 Active celecoxib (CeleBREX) 200 mg capsule TAKE 1 CAPSULE TWICE DAILY 200 Capsule 3 08/23/20 24 Active potassium chloride (Klor-Con 10) 10 mEq Extended Release tablet Take 1 Tablet (10 mEq) by mouth daily. 100 Tablet 3 08/26/20 24 Active gabapentin (NEURONTIN) 300 mg capsule TAKE 1 CAPSULE 3 TIMES DAILY WITH MEALS AND 2 CAPSULES AT BEDTIME 450 Capsule 3 10/07/20 24 Active furosemide (LASIX) 40 mg tablet Take 1 Tablet (40 mg) by mouth daily. 90 Tablet 4 12/09/19 25 Active baclofen (LIORESAL) 20 mg tablet TAKE 1 TABLET 4 TIMES DAILY 360 Tablet 3 02/11/20 25 Active amitriptyline (ELAVIL) 10 mg tablet Take 1 Tablet (10 mg) by mouth daily at bedtime. 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 08/12/2023 Uses powered wheelchair 08/09/2022 S/P laparoscopic sleeve gastrectomy 07/15/2019 Positive PPD 05/28/2018 Hyperlipidemia, mixed 05/28/2018 Rotator cuff syndrome of right shoulder 02/18/20 14 Neurogenic bladder Overview (04/12/2015): s/p suprapubic cath 2013 - Dr Ruben Mae Psoriatic arthritis Overview (04/14/2015): rheum Dr Shelton on Humira Venous insufficiency Lumbar spinal cord injury Overview (04/14/2015): during pedicle subtraction osteotomy operation was c/b proximal junctional catastrophic failure resulting in spinal cord injury - Dr Magana Resolved Problems Problem Noted Date Diagnosed Date Resolved Date Decreased mobility 08/09/2022 3 Obesity (BMI 35.0-39.9 without comorbidity) 05/28/2018 08/03/2020 Bladder prolapse, female, acquired 02/17/2014 04/12/2015 Fatigue 04/01/2012 05/09/2012 Psoriatic arthritis 08/24/2011 04/14/20 15 Sacroiliitis 08/24/2011 12/07/2011 Spondylolisthesis 04/21/2010 04/12/2015 Overview (04/21/2010): With secondary lumbar fusion Lumbago 01/16/2010 04/12/2015 Abdominal pain, left upper quadrant 10/07/2006 01/16/2010 Sciatica 04/12/2006 01/16/2010 Routine general medical exam ination at a health care facility 03/05/2006 04/12/2015 Other and unspecified hyperlipidemia 03/05/2006 04/12/2015 Urinary frequency 03/05/2006 01/16/2010 Special screening for malign ant neoplasms, colon 03/05/2006 04/12/2015 Other abnormal blood chemistry 07/14/2004 01/16/2010 Other psoriasis 12/21/2003 04/12/2015 Lumbago 12/21/2003 01/16/2010 Hyperlipidemia 04/14/2015 Encounters Date Type Department Care Team Description 02/15/2025 Refill [facility], [place] [place] [address] Keith Gentile MD 02/10/2025 Refill [facility], [address] [place] [address] Keith Gentile MD 01/11/2025 Refill [facility], [place] [place] [address] Keith Gentile MD 12/31/2024 Abstract [facility], [address] [place] [address] Keith Gentile MD 12/16/2024 Orders Only [facility], [address] [place] [phone] Provider, Abstract from Last 3 Months Immunizations Immunization Administration Dates Next Due (ABRYSVO)(60 YR UP/GA 32-36 WKS) RSV, BIVALENT, PROTEIN SUBUNIT RSVPREF, DILUENT RECONSTITUTED, 0.5 ML, PF 08/14/2023 (ADACEL/BOOSTRIX)(10 YR UP) TDAP VACCINE, 0.5ML, IM 08/11/2024,04/14/2015 (COMIRNATY)(12 YR UP) COVID- 19 VACCINE, MRNA, SPIKE PROTEIN, LNP, JAMAAL(PF) 30 MCG/0.3 ML IM SUSP 08/01/2023 (PFIZER JAMAAL)(12 YR UP PRIMA RY SERIES) COVID-19 VACCINE - EMERGENCY USE AUTHORIZATION, MRNA, JAMAAL(PF) 30 MCG/0.3 ML IM SUSP 07/22/2024 (PREVNAR 13)(6 WKS UP) PNEUM OCOCCAL CONJUGATE (PCV13) 0.5 ML, IM 05/27/2017,01/20/2013 (SHINGRIX)(50 YRS UP) ZOSTER VACCINE RECOMBINANT, 0.5 ML, IM 11/04/2018,07/13/2018 (SPIKEVAX) (12 YRS UP PRIMAR Y SERIES) COVID-19 VACCINE - MRNA-1273(PF) 100 MCG/0.5 ML IM SUSP 01/09/2021,12/01/2020 INFLUENZA VACCINE HIGH DOSE QUADRIVALENT 65 YR UP PF IM 07/22/2024,07/30/2022,06/27/2020,08/01 Influenza Seasonal Unspecifi ed Formulation IM 08/01/2021,09/28/2018,08/15/2016,07/28,07/21/2013,08/18/2011 Influenza Vaccine High Dose 65+ Yrs IM 9,09/29/2018 PNEUMOVAX (PPSV23) pneumococ noemy polysaccharide 23-valent Vaccine 07/08/2018 Zoster Vaccine Live SQ 03/21/2012 Family History Medical History Relation Name Comments Heart Disease Father Breast Cancer Mother Colon Cancer Neg Hx Relation Name Status Comments Father Mother Social History Tobacco Use Types Packs/Day Years Used Date Smoking Tobacco: Never Smokeless Tobacco: Never Alcohol Use Standard Drinks/Week Comments Yes 0 (1 standard drink = 0.6 oz pur e alcohol) Financial Resource Strain Answer Date R ecorded How hard is it for you to pa y for the very basics like food, housing, medical care, and heating? Not hard at all 08/09/2022 Food Insecurity Answer Date Recorded In the past 12 months, have you worried that your food would run out before you had money to buy more? Never true 08/09/2022 In the past 12 months, did y ou run out of food and didn't have money to buy more? Never true 08/09/2022 Transportation Needs Answer Date Record ed In the past 12 months, has l ack of transportation kept you from medical appointments or from getting medications? No 08/09/2022 Lack of Transportation (Non-Medical) Not on file 08/09/2022 Comments No Sex and Gender Information Value Date Recorded Sex Assigned at Female 07/24/2024 7:16 PM CDT Legal Sex Female 4:55 AM DEMAND GENERATOR MANAGER Gender Identity Female 07/24/2024 7:16 PM CDT Sexual Orientation Straight 07/24/2024 7: 16 PM CDT Occupation Industry Job Start Date Job End Date Not on file Not on file Not on file Not on file Last Filed Vital Signs Vital Sign Reading Time Taken Comments Blood Pressure 130/84 08/11/2024 11:25 AM CDT Pulse 74 08/11/2024 11:25 AM CDT Temperature 36.4 C (97.6 F) 08/11/2024 11:25 AM CDT Respiratory Rate 20 10/12/2011 1:00 PM DEMAND GENERATOR MANAGER Oxygen Saturation 98% 08/11/2024 11:25 AM CDT Inhaled Oxygen Concentration - - Weight 77.1 kg (170 lb) 08/11/2024 11:25 AM CDT Height 157.5 cm (5' 2 ) 08/11/2024 11:25 AM CDT Body Mass Index 31.09 08/11/2024 11:25 AM CDT Plan of Treatment Upcoming Encounters Date Type Department Care Team (Late st Contact Info) Description 08/16/2025 11:00 AM CDT Office Visit [facility] Care - [facility], [address] [place] [address] Keith Gentile MD [address] [place] [address] Health Maintenance Due Date Last Done Comments Flex Sig/CT Colonography Q 5 years 1997 FIT/FOBT Q 1 YEAR (AUTO ORDER) 06/21/2019 06/21/2018 FIT/FOBT Q 1 year 06/21/2019 06/21/2018 OSTEOPOROSIS SCREENING 06/21/2022 06/21/2017 COVID-19 Vaccine (5 - 2023-2 5 season) 2024 07/22/2024, 08/01/2023, 01/09/2021, Additional history exists Medicare Advantage ([place]) Preventative Visit/Annual Wellness Visit 10/21/2024 08/11/2024, 08/12/2023, 08/09/2022, Additional history exists BREAST CANCER SCREENING 02/05/2025 02/06/20 24, 07/19/2021, 02/18/2019, Additional history exists FIT-DNA Q 3 years 08/18/2026 08/18/2023, 07/24/2019 FIT/ DNA Q 3 YEARS (AUTO ORDER) 08/18/2026 08/18/2023, 08/18/2023, 07/24/2019, Additional history exists FLEX SIG/CT COLONOGRAPHY Q 5 YEARS (AUTO ORDER) 08/18/2028 08/18/2023, 08/18/2023 COLORECTAL CANCER SCREENING (AUTO ORDER) 07/26/2032 07/26/2022, 05/20/2009 COLORECTAL SCREENING 07/26/2032 07/26/2022, 05/20/2009, 05/20/2009 Colorectal Cancer Screening (AUTO ORDER) 07/26/2032 Colorectal Cancer Screening 07/26/2032 DTAP/TDAP/TD VACCINES (3 - T d or Tdap) 08/11/2034 08/11/2024, 04/14/2015 PNEUMOCOCCAL VACCINE 50+ YEARS Completed 0 07/08/2018, 05/27/2017, 01/20/2013 ZOSTER VACCINE Completed 11/04/2018, 06/22, 03/21/2012 RSV VACCINE (60+ or ) Completed 08/14/2023 INFLUENZA VACCINE Completed 07/22/2024, , 07/30/2022, Additional history exists Procedures Procedure Name Priority Date/Time Associated Diagnosis Comments MAMMO SCREEN BILAT W OR WO CAD Routine 02/06/2024 9:45 AM CDT COLON CANCER SCREEN, STOOL DNA Routine 08/18/2023 9:00 PM CDT Screening for colorectal cancer ENDOSCOPY, COLON, SCREENING Routine 07/26/2022 OCCULT BLOOD IMMUNOASSAY, COLORECTAL SCREEN Routine 06/21/2018 2:47 AM CDT Screening for colorectal cancer XR DEXA BONE DENSITY AXIAL 1 OR MORE SITES Routine 06/21/2017 11:36 AM CDT Routine general medical examination at a health care facility from Last 3 Months or Most Recently Relevant to Health Maintenance Results * MAMMO SCREEN BILAT W OR WO CAD (02/06/2024 9:45 AM CDT) Anatomical Region Laterality Modality Breast Bilateral Mammography Keith Gentile MD MAMMO ORDERABLES Final Result * COLON CANCER SCREEN, STOOL DNA (08/18/2023 9:00 PM CDT) COLOGUARD RESULT Negative Negative [facility] Comment: NEGATIVE TEST RESULT. A negative Cologuard result indicates a low likelihood that a colorectal cancer (CRC) or advanced adenoma (adenomatous polyps with more advanced pre-malignant features) is present. The chance that a person with a negative Cologuard test has a colorectal cancer is less than 1 in 1500 (negative predictive value >99.9%) or has an advanced adenoma is less than 5.3% (negative predictive value 94.7%). These data are based on a prospective cross-sectional study of 10,000 individuals at average risk for colorectal cancer who were screened with both Cologuard and colonoscopy. (Moisés Polo al, N Engl J Med 2014;370(14):5578-9182) The normal value (reference range) for this assay is negative. COLOGUARD RE-SCREENING RECOMMENDATION: Periodic colorectal cancer screening is an important part of preventive healthcare for asymptomatic individuals at average risk for colorectal cancer. Following a negative Cologuard result, the [place] Cancer Society and U.S. Multi-Society Task Force screening guidelines recommend a Cologuard re-screening interval of 3 years. References: [place] Cancer Society Guideline for Colorectal Cancer Screening: https://www.cancer.org/cancer/uflhp-ibeook-mjayis/uazpqfwfy-tunxtnmna-zxifmdk/ac s-rec ommendations.html.; Laurent DK, Em CR, Vineet JerezK, Colorectal Cancer Screening: Recommendations for Physicians and Patients from the U.S. Multi-Society Task Force on Colorectal Cancer Screening , Am J Gastroenterology 2017; 112:2051-3745. TEST DESCRIPTION: Composite algorithmic analysis of stool DNA-biomarkers with hemoglobin immunoassay. Quantitative values of individual biomarkers are not reportable and are not associated with individual biomarker result reference ranges. Cologuard is intended for colorectal cancer screening of adults of either sex, 45 years or older, who are at average-risk for colorectal cancer (CRC). Cologuard has been approved for use by the U.S. FDA. The performance of Cologuard was established in a cross sectional study of average-risk adults aged 50-84. Cologuard performance in patients ages 45 to 49 years was estimated by sub-group analysis of near-age groups. Colonoscopies performed for a positive result may find as the most clinically significant lesion: colorectal cancer [4.0%], advanced adenoma (including sessile serrated polyps greater than or equal to 1cm diameter) [20%] or non- advanced adenoma [31%]; or no colorectal neoplasia [45%]. These estimates are derived from a prospective cross-sectional screening study of 10,000 individuals at average risk for colorectal cancer who were screened with both Cologuard and colonoscopy. (Moisés Polo al, N Engl J Med 2014;370(14):0992-5980.) Cologuard may produce a false negative or false positive result (no colorectal cancer or precancerous polyp present at colonoscopy follow up). A negative Cologuard test result does not guarantee the absence of CRC or advanced adenoma (pre-cancer). The current Cologuard screening interval is every 3 years. ([place] Cancer Society and U.S. Multi-Society Task Force). Cologuard performance data in a 10,000 patient pivotal study using colonoscopy as the reference method can be accessed at the following location: www.Secrette/results. Additional description of the Cologuard test process, warnings and precautions can be found at www.PicBadges[employer]ImpactRxrd.com. Stool STOOL SPECIMEN / Unknown 08/18/2023 9:00 PM CDT 08/21/2023 12:33 AM CDT us Keith Gentile MD BODY FLUIDS AND STOOLS Final Res ult [facility] CLIA # [id number] [address] , [address] [place] [address] * ENDOSCOPY, COLON, SCREENING (07/26/2022) us Abstract Provider GI PROCEDURE ORDERABLES Final Result [facility] [id number] [address] [facility], [address] [place] [address] * OCCULT BLOOD IMMUNOASSAY, COLORECTAL SCREEN (06/21/2018 2:47 AM CDT) FECAL GLOBIN [facility] Comment: FECAL GLOBIN BY IMMUNOCHEMISTRY MICRO NUMBER: [id number] TEST STATUS: FINAL SPECIMEN SOURCE: INSURE (TM) FOBT TEST CARD SPECIMEN QUALITY: ADEQUATE RESULT: Not Detected SPLIT 06/17/2018 FROM [id number] FASTING:UNKNOWN FASTING: UNKNOWN Test Performed at: [facility] [address] [place] [address] Az Nash D.O., MPH Stool STOOL SPECIMEN / Unknown 06/21/2018 2:47 AM CDT Keith Gentile MD BODY FLUIDS AND STOOLS Edited Re sult - Final Performing Organization Address [facility] Co de Phone Number [facility] [address] [place] [address] * XR DEXA BONE DENSITY AXIAL 1 OR MORE SITES (06/21/2017 11:36 AM CDT) Anatomical Region Laterality Modality Digital Radiogra phy 06/21/2017 11:3 6 AM CDT Impressions 06/21/2017 11:42 AM CDT IMPRESSION: Osteopenic left femoral neck BMD. Left Femoral Neck: T-Score: -1.2 Right Femoral Neck: T-Score: -0.7 Left Forearm: T-Score: -0.3 Right Forearm: T-Score: -1.0 Comments: None. Statistical change: No prior exam is available. Definitions: Normal: T-score above -1.0 Osteopenia T-score less than -1.0 and above -2.5 Osteoporosis: T-score <= -2.5 Follow-up Recommendations: Patients without high risk factors for osteoporosis T-score -1.0 to -1.5 - Consider repeat BMD in 5-10 years T-score -1.5 to - 2.0 - Consider repeat BMD in 3-5 years T-score -2.0 to - 2.5 - Consider repeat BMD every 2 years Patients on treatment for osteoporosis 1-2 years after initiation of treatment and every 2 years thereafter D[address] Dr[address] Barry Blake MD DICTATION LOCATION: Location 1 - [facility] 06/21/2017 11:42 AM CDT EXAMINATION: BONE DENSITY STUDY (DXA) DATE: 06/21/2017 11:36 AM CLINICAL HISTORY: 67 years postmenopausal female with extensive orthopedic hardware between T12 and L5. PROCEDURE: Planar images of the hips and forearm using a LUNAR DEXA scanner for bone mineral density determination (BMD). FINDINGS: Left Femoral Neck: T-Score: -1.2 0.868 g/sq cm Right Femoral Neck: T-Score: -0.7 0.935 g/sq cm Left 33% Radius: T-Score: -0.3 0.850 g/sq cm Right 33% Radius: T-Score: -1.0 0.791 g/sq cm Detailed report placed in Imaging Section of [employer]. Procedure Note Barry Blake MD - 06/21/2017 EXAMINATION: BONE DENSITY STUDY (DXA) DATE: 06/21/2017 11:36 AM CLINICAL HISTORY: 67 years postmenopausal female with extensive orthopedic hardware between T12 and L5. PROCEDURE: Planar images of the hips and forearm using a LUNAR DEXA scanner for bone mineral density determination (BMD). FINDINGS: Left Femoral Neck: T-Score: -1.2 0.868 g/sq cm Right Femoral Neck: T-Score: -0.7 0.935 g/sq cm Left 33% Radius: T-Score: -0.3 0.850 g/sq cm Right 33% Radius: T-Score: -1.0 0.791 g/sq cm Detailed report placed in Imaging Section of [employer]. IMPRESSION IMPRESSION: Osteopenic left femoral neck BMD. Left Femoral Neck: T-Score: -1.2 Right Femoral Neck: T-Score: -0.7 Left Forearm: T-Score: -0.3 Right Forearm: T-Score: -1.0 Comments: None. Statistical change: No prior exam is available. Definitions: Normal: T-score above -1.0 Osteopenia T-score less than -1.0 and above -2.5 Osteoporosis: T-score <= -2.5 Follow-up Recommendations: Patients without high risk factors for osteoporosis T-score -1.0 to -1.5 - Consider repeat BMD in 5-10 years T-score -1.5 to - 2.0 - Consider repeat BMD in 3-5 years T-score -2.0 to - 2.5 - Consider repeat BMD every 2 years Patients on treatment for osteoporosis 1-2 years after initiation of treatment and every 2 years thereafter D[address] by Dr[address] Barry Blake MD DICTATION LOCATION: Location 1 - [facility] Keith Gentile MD DIAGNOSTIC IMAGING ORDERABLES Fi nal Result from Last 3 Months or Most Recently Relevant to Health Maintenance Insurance [employer] [facility] RX [employer] Medicare Part D Advance Directives For more information, please contact: [phone] * Full Code (Latest Code Status on File) Date Activated Date Inactivated Comments 08/11/2024 12:33 PM Care Teams Maxillofacial Surgeon Relationship Specialty Start Date End Date Keith Gentile MD [address] [place] [address] PCP - General Internal Medicine 03/22/15
--- OUTSIDE RECORDS SUMMARY | 2025-03-12 13:29 | XMS_ITS | Encounter Summary ---
Author Organization [facility] Address [address] [place] [address] Care Team Providers Care Heel Seater Name Role Phone Keith Gentile MD Primary Care Provider [phone] Encounter Details Date Type Department Care Team (Late Contact Info) Description 05/17/2009 Outpatient Historical [facility] DEPT Janette Swan, SMOKE AND FLAME SPECIALIST [address] [address] Abdominal Tenderness, Unspecified Site Social History Tobacco Use Types Packs/Day Years Used Date Smoking Tobacco: Never Alcohol Use Standard Drinks/Week Comments Yes 0 (1 standard drink = 0.6 oz pur e alcohol) Comments No Sex and Gender Information Value Date Recorded Sex Assigned at Female 07/24/2024 7:16 PM CDT Legal Sex Female 4:55 AM DIRECTOR PROCESS IMPROVEMENT Gender Identity Female 07/24/2024 7:16 PM CDT Sexual Orientation Straight 07/24/2024 7: 16 PM CDT documented as of this encounter Plan of Treatment Upcoming Encounters Date Type Department Care Team (Late Contact Info) Description 08/16/2025 11:00 AM CDT Office Visit [facility] Primary Care - [facility], [address] [place] [address] Keith Gentile MD [address] [place] [address] documented as of this encounter Procedures Procedure Name Priority Date/Time Associated Diagnosis Comments CT ABDOMEN PELVIS WO CONTRAST Timed Study 05/17/2009 12:43 PM CDT documented in this encounter Results * CT ABDOMEN PELVIS WO CONTRAST (05/17/2009 12:43 PM CDT) Anatomical Region Laterality Modality Abdomen Other 05/17/2009 12:4 3 PM CDT Narrative 05/18/2009 7:40 AM CDT [place] [address] [place] [place] [address] Admit Date: 05/17/2009 JESSICA GALINDO Sex: F Admit Prov: JANETTE SWAN Date: 1950 Primary Care Prov: ZARI SR CMRN: [id number] Room: [facility] SSN: [id number] IMAGING SERVICES Ordering Prov: N/A Accession Number: [id number] CT ABDOMEN AND PELVIS WITHOUT CONTRAST 05/17/2009 HISTORY: Right upper quadrant pain FINDINGS: CT evaluation of the abdomen and pelvis was performed following oral administration of contrast media only because of contrast allergy history. Liver is of normal size without focal defect or biliary dilatation. Gallbladder is surgically absent. Spleen is unremarkable. There is no pancreatic mass or inflammation. The kidneys are unobstructed and there is no mass effect. There is no adenopathy. Scans through the pelvis show postop changes of a spinal fusion. There is no pelvic mass, fluid collection or adenopathy. There is a 2.4 cm polypoid filling defect noted in the hepatic flexure of colon. Further evaluation to exclude colonic tumor is suggested. IMPRESSION: Possible colonic mass hepatic flexure. Recommend further evaluation. A report was called to Dr. Pierre's office at time of the dictation. . Dictated by: DANYA CARTY 05/17/2009 12:58 Electronically signed by: DANYA CARTY 05/18/2009 07:38 Transcribed: 05/17/2009 19:10 AMK Procedure Note Danya Carty MD - 05/18/2009 [place] [place] [address] Admit Date: 05/17/2009 JESSICA GALINDO Sex: F Admit Prov: JANETTE SWAN Date: 1950 Primary Care Prov: ZARI SR CMRN: [id number] Room: [facility] SSN: [id number] IMAGING SERVICES Ordering Prov: N/A Interpretation CT ABDOMEN AND PELVIS WITHOUT CONTRAST 05/17/2009 HISTORY: Right upper quadrant pain FINDINGS: CT evaluation of the abdomen and pelvis was performedfollowing oral administration of contrast media only because of contrastallergy history. Liver is of normal size without focal defect or biliary dilatation. Gallbladder is surgically absent. Spleen is unremarkable. There isno pancreatic mass or inflammation. The kidneys are unobstructed andthere is no mass effect. There is no adenopathy. Scans through the pelvis show postop changes of a spinal fusion.There is no pelvic mass, fluid collection or adenopathy. There is a 2.4 cmpolypoid filling defect noted in the hepatic flexure of colon. Furtherevaluation to exclude colonic tumor is suggested. IMPRESSION: Possible colonic mass hepatic flexure. Recommend furtherevaluation. A report was called to Dr. Pierre's office at time of thedictation. . Dictated by: DANYA CARTY 05/17/2009 12:58 Electronically signed by: DANYA CARTY 05/18/2009 07:38 Transcribed: 05/17/2009 19:10 AMK Janette Swan SMOKE AND FLAME SPECIALIST CT ORDERABLES Final Result documented in this encounter Visit Diagnoses Diagnosis Abdominal tenderness, unspecified site documented in this encounter Additional Health Concerns Infection Onset Date Last Indicated Resolved Time R/O COVID-19 05/03/2022 05/03/2022 05/10/2022 1:16 AM CDT documented as of this encounter Care Teams Heel Seater Relationship Specialty Start Date End Date Keith Gentile MD [address] [place] [address] PCP - General Internal Medicine 03/22/15 documented as of this encounter
--- OUTSIDE RECORDS SUMMARY | 2025-03-12 13:29 | XMS_ITS | Encounter Summary ---
Author Organization [facility] Address [address] [place] [address] Care Team Providers Care Veterans Employment Representative Name Role Phone Keith Gentile MD Primary Care Provider [phone] Encounter Details Date Type Department Care Team (Latest Contact Info) Description 12/30/2008 Outpatient Historical HIS [facility] [place] [address] [place] [address] Family History of Malignant Neoplasm of Breast; Other Screening Mammogram Social History Tobacco Use Types Packs/Day Years Used Date Smoking Tobacco: Never Alcohol Use Standard Drinks/Week Comments Yes 0 (1 standard drink = 0.6 oz pur e alcohol) Comments No Sex and Gender Information Value Date Recorded Sex Assigned at Female 07/24/2024 7:16 PM CDT 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 [place] [address] Keith Gentile MD [address] [place] [address] documented as of this encounter Visit Diagnoses Diagnosis Family history of malignant neoplasm of breast Other screening mammogram documented in this encounter Additional Health Concerns Infection Onset Date Last Indicated Resolved Time R/O COVID-19 05/03/2022 05/03/2022 05/10/2022 1:16 AM CDT documented as of this encounter Care Teams Veterans Employment Representative Relationship Specialty Start Date End Date Keith Gentile MD [address] [place] [address] PCP - General Internal Medicine 03/22/15 documented as of this encounter
--- OUTSIDE RECORDS SUMMARY | 2025-03-12 13:29 | XMS_ITS | Continuity of Care Document ---
Author Organization [facility]erg[facility] Address [address] [place] [address] [facility] [address] [place] [address] Phone Care Team Providers Care Steelscope Operator Name Role Phone [facility] Unavailable Unavail able Brett De Souza Unavailable Unavailable Advance Directives Directive Yes / No Effective Date File Name No Information Encounters Encounter Description Practice Location Reason(s) For Visit Diagnoses Date Provider Providers Copied on Encounter [facility], [address], [place], [place], [id number], [place] tel:[phone] [facility] No Information [facility] [address] [facility], [address], [place], [place], [id number] , [place]. [phone] Referring Provider: Camden Chao, [address] [place] [address] [address], [place], [address]. tel:[phone] sulting Provider: Brett De Souza, [address] [place] [address], [place], [address]. tel:[phone] Family History Family Member Type Diagnosis Age At Onset No Information Payers Payer name Insurance type Covered libertarian ID Authoriza tion(s) General [employer] CI [id number] Social History Type Description Quantity Date Captured Comments Sex Female Smoking Status No Information Chief Complaint And Reason For Visit No Information Reason For Referral Reason For Referral No Information History Of Present Illness Encounter Date Complaint History Of Prese nt Illness No Information Functional Status Date Functional Assessmen t No Information Instructions Date Instruction Additional Infor mation No Information Assessments Type Assessment Date No Information Patient Care Teams Name Effective Dates (start - stop) Status Members No Information
--- OUTSIDE RECORDS SUMMARY | 2025-03-12 13:29 | XMS_ITS | Encounter Summary ---
Author Organization [facility] Address 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 Primary Care - [facility], [facility] [address] [place] [address] Keith Gentile MD [address] [facility] [address] [place] [address] documented as of this encounter Visit Diagnoses Diagnosis Follow-up examination, following other surgery- Primary documented in this encounter Additional Health Concerns Infection Onset Date Last Indicated Resolved Time R/O COVID-19 05/03/2022 05/03/2022 05/10/2022 1:16 AM CDT documented as of this encounter Care Teams Court Messenger Relationship Specialty Start Date End Date Keith Gentile MD [address] [place] [address] PCP - General Internal Medicine 03/22/15 documented as of this encounter
--- OUTSIDE RECORDS SUMMARY | 2025-03-12 13:29 | XMS_ITS | Encounter Summary ---
Author Organization [facility] Address 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 [place] [address] Keith Gentile MD [address] [place] [address] documented as of this encounter Procedures Procedure Name Priority Date/Time Associated Diagnosis Comments HEMOGLOBIN AND HEMATOCRIT Routine 12/03/2006 5:20 AM HOUSEKEEPING WORKER HEMOGLOBIN AND HEMATOCRIT Routine 12/02/2006 9:10 PM HOUSEKEEPING WORKER HIV RAPID SCREEN Routine 12/02/2006 12:3 2 PM HOUSEKEEPING WORKER HEPATITIS C AB W/CONFIRMATION Routine 12/02/2006 12:32 PM HOUSEKEEPING WORKER HEPATITIS B SURFACE ANTIGEN Routine 12/02/2006 12:32 PM HOUSEKEEPING WORKER HEMOGLOBIN AND HEMATOCRIT Routine 11/19/2006 12:18 PM HOUSEKEEPING WORKER documented in this encounter Results * (ABNORMAL) HEMOGLOBIN AND HEMATOCRIT (12/03/2006 5:20 AM HOUSEKEEPING WORKER) HEMOGLOBIN 11.5(L) 11.8 - 14.8 g/dL INTERFACE SYSTEM HEMATOCRIT 33.6(L) 35.5 - 44.0 % INTERFACE SYSTEM 12/03/2006 5:20 AM HOUSEKEEPING WORKER us Brett Cleary MD HEMATOLOGY ORDERABLES Edited Performing Organization Address [facility] Phone Number INTERFACE SYSTEM Refer to clinic/hospital department * HEMOGLOBIN AND HEMATOCRIT (12/02/2006 9:10 PM HOUSEKEEPING WORKER) HEMOGLOBIN 12.4 11.8 - 14.8 g/dL INTERFACE SYSTEM HEMATOCRIT 35.9 35.5 - 44.0 % INTERFACE SYSTEM 12/02/2006 9:10 PM HOUSEKEEPING WORKER us Brett Cleary MD HEMATOLOGY ORDERABLES Edited Performing Organization Address [facility] Phone Number INTERFACE SYSTEM Refer to clinic/hospital department * HEPATITIS C AB WITH CONFIRMATION BY RIBA (12/02/2006 12:32 PM HOUSEKEEPING WORKER) HEPATITIS C AB NON-REACT ARTEM NON-REACT ARTEM INTERFACE SYSTEM SIGNAL TO CUT OFF 0.01 <1.00 IN TERFACE SYSTEM Comment: [email or web address] [address] [place] [address] DR QAMAR MARTINEZ 12/02/2006 12:3 2 PM HOUSEKEEPING WORKER us Brett Cleary MD CHEMISTRY ORDERABLES Edited Performing Organization Address [facility] Phone Number INTERFACE SYSTEM Refer to clinic/hospital department * HEPATITIS B SURFACE ANTIGEN (12/02/2006 12:32 PM HOUSEKEEPING WORKER) HEPATITIS B SURFACE AG NON-REACT ARTEM NON-REACT ARTEM INTERFACE SYSTEM Comment: Lab test performed by: [email or web address] [address] [address] QAMAR MARTINEZ 12/02/2006 12:3 2 PM HOUSEKEEPING WORKER Brett Cleary MD CHEMISTRY ORDERABLES Edited Performing Organization Address [facility] Phone Number INTERFACE SYSTEM Refer to clinic/hospital department * HIV RAPID SCREEN (12/02/2006 12:32 PM HOUSEKEEPING WORKER) Pathologist [facility] RAPID HIV SCREEN Nonreactive Nonreactive INTERFACE SYSTEM Comment:Results called to Ho curtis at 12/02/2006 1:48 PM and read back verified. 12/02/2006 12:3 2 PM HOUSEKEEPING WORKER Brett Cleary MD CHEMISTRY ORDERABLES Edited Performing Organization Address [facility] Phone Number INTERFACE SYSTEM Refer to clinic/hospital department * HEMOGLOBIN AND HEMATOCRIT (11/19/2006 12:18 PM HOUSEKEEPING WORKER) Pathologist [facility] HEMOGLOBIN 14.1 11.8 - 14.8 g/dL INTERFACE SYSTEM HEMATOCRIT 41.4 35.5 - 44.0 % INTERFACE SYSTEM 11/19/2006 12:1 8 PM HOUSEKEEPING WORKER Brett Cleary MD HEMATOLOGY ORDERABLES Edited Performing Organization Address [facility] Number INTERFACE SYSTEM Refer to clinic/hospital department documented in this encounter Visit Diagnoses Diagnosis Congenital spondylolisthesis- Primary documented in this encounter Additional Health Concerns Infection Onset Date Last Indicated Resolved Time R/O COVID-19 05/03/2022 05/03/2022 05/10/2022 1:16 AM CDT documented as of this encounter Care Teams Anger Control Counselor Relationship Specialty Start Date End Date Keith Gentile MD [address] [place] [phone] PCP - General Internal Medicine 03/22/15 documented as of this encounter
--- OUTSIDE RECORDS SUMMARY | 2025-03-12 13:29 | XMS_ITS | Encounter Summary ---
Author Organization [facility] Address 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 [place] [address] Keith Gentile MD [address] [facility] [address] [place] [address] documented as of this encounter Visit Diagnoses Diagnosis Degeneration of cervical intervertebral disc- Primary documented in this encounter Additional Health Concerns Infection Onset Date Last Indicated Resolved Time R/O COVID-19 05/03/2022 05/03/2022 05/10/2022 1:16 AM CDT documented as of this encounter Care Teams Printing Grey Cloth Tender Relationship Specialty Start Date End Date Keith Gentile MD [address] [place] [phone] PCP - General Internal Medicine 03/22/15 documented as of this encounter
--- OUTSIDE RECORDS SUMMARY | 2025-03-12 13:29 | XMS_ITS | Encounter Summary ---
Author Organization [facility] Address [address] [place] [address] Care Team Providers Care Tower Dragline Operator Name Role Phone Keith Gentile MD Primary Care Provider [phone] Encounter Details Date Type Department Care Team (Latest Contact Info) Description 12/20/2006 Outpatient Historical [facility] Brett Cleary MD NO ADDRESS ON FILE Degeneration of Lumbar or Lumbosacral Intervertebral Disc (Primary Dx) Social History Tobacco Use Types Packs/Day Years Used Date Smoking Tobacco: Never Assessed Comments Unknown Sex and Gender Information Value Date Recorded Sex Assigned at Female 07/24/2024 7:16 PM CDT 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 [place] [address] Keith Gentile MD [address] [facility] [address] [place] [address] documented as of this encounter Visit Diagnoses Diagnosis Degeneration of lumbar or lumbosacral intervertebral disc- Primary documented in this encounter Additional Health Concerns Infection Onset Date Last Indicated Resolved Time R/O COVID-19 05/03/2022 05/03/2022 05/10/2022 1:16 AM CDT documented as of this encounter Care Teams Tower Dragline Operator Relationship Specialty Start Date End Date Keith Gentile MD [address] [place] [phone] PCP - General Internal Medicine 03/22/15 documented as of this encounter
--- OUTSIDE RECORDS SUMMARY | 2025-03-12 13:29 | XMS_ITS | Clinical Summary ---
Author Organization [facility] Address [address] [place] [address] Care Team Providers Care Oracle Forms Developer Name Role Phone Keith Gentile MD Primary Care Provider [phone] Source Comments [facility],non-owned Affiliates and Associated Physician Practices is amultiple site organization consisting of ambulatory clinics and hospital sitesin [place], [place], [place] and [place]. This disclosure is being madepursuant to the Care Everywhere program and may not contain all information available regarding this patient. Last updated 18.[facility] Allergies Active Allergy Reactions Criticality Noted Date Comments Sulfamethoxazole W-Trimethoprim Rash Medium 08/26/2020 Chlorhexidine Rash Medium 07/22/2014 Chlorhexidine wipes Chlorhexidine wipes Contrast-Iodinated Agents For Ct/Other Swelling 07/16/2014 Lip swelling and itching Fosfomycin Diarrhea 02/07/2022 Morphine Nausea and/or Vomiting 07/16/2014 IV, not IM or epidural Penicillins Urticaria 07/16/2014 Vancomycin Diarrhea Low 07/15/2019 Medications * Be aware that medications may not be up to date on this document. Alwaysverify current medications with the patient. baclofen (LIORESAL) 20 MG tablet Take 1 (one) tablet by mouth 4 times daily May cause drowsiness. Active amitriptyline (ELAVIL) 10 MG tablet Take 1 (one) tablet by mouth at bedtime Active diclofenac sodium (VOLTAREN) 1 % gel 018 Active cetirizine (ZYRTEC) 10 MG tablet Take 1 (one) tablet by mouth once daily Active gabapentin (NEURONTIN) 250 MG/5ML oral solution Take 6 mL by mouth 4 times daily 720 mL 019 Active celecoxib (CELEBREX) 200 MG capsule Active Multiple Vitamin (DAILY-BRIDGET) TABS Take 1 tablet by mouth once daily Active SKYRIZI, 150 MG DOSE, 75 MG/0.83ML injection Active potassium chloride ER (KLOR-CON) 10 MEQ tablet Take 1 (one) tablet by mouth once 021 Active Irrigation Supplies ([employer] Irrigation Syringe/Bulb) MISCIndications :Recurrent UTI,Acute cystitis without hematuria 1 syringe by Intravesical route once daily Sterile Irrigation syringe for bladder instillation of Medication 10 Each 1 022 Active furosemide (Lasix) 40 MG tablet 023 Active Syringe/Needle, Disp, (SYRINGE 3CC/20GX1 ) 20G X 1 3 ML MISCIndications :Recurrent UTI,Acute cystitis without hematuria Use 1 package once daily Can dispense with 18g, 20g, 21g or 22g needle. For use with abx vials. 10 Each 1 024 Active ertapenem (INVanz) injectionIndica tions:Recurrent UTI Patient mixes 5 grams ertapenem in normal saline to instill into bladder through suprapubic catheter every 40 days for recurrent UTI. Dispense 10 vials. 10 Each 3 024 Active onabotulinumtox in A (Botox) 200 units injection Inject 300 (three hundred) Units into muscle as needed (to be done every 3 months as needed) Please give patient one 100 unit vial and one 200 unit vial of botox . For a total of 300 units . Patient to bring to the physician office for injections. 1 Each 2 024 Active mirabegron ER 24hr (Myrbetriq) 50 MG tablet Take 1 (one) tablet by mouth once daily 90 tablet 1 025 Active ciprofloxacin (Cipro) 500 MG tablet Take 1 (one) tablet by mouth 024 Active doxycycline hyclate (Vibramycin) 100 MG capsule Take 1 (one) capsule by mouth 024 Active Sodium Chloride (0.9% NaCl) 0.9 % irrigation 50 mL by Irrigation route once daily Dispense three Bottles of 500 cc Normal Saline 0.9% for bladder instillation through catheter. 1500 mL 3 025 Active phenazopyridine (Pyridium) 200 MG tablet Take 1 (one) tablet by mouth 3 times daily as needed 30 tablet 1 025 Active 0.9% NaCl irrigation 0.9 % irrigation solutionIndicat ions:Recurrent UTI Patient needs 50cc vials x 10 vials. Will mix with Ertapenem (from Specialty pharm) for bladder instillation through suprapubic catheter daily x 10 days. 500 mL 3 025 Active estradiol (ESTRACE VAGINAL) 0.1 MG/GM vaginal cream Insert 1 g into the vagina every Saturday & 42.5 g 2 019 2024 Discontinued(L ist Clean-Up) trospium ER 24hr (SANCTURA XR) 60 MG capsuleIndicati ons:Mixed incontinence urge and stress (male)(female) Take 1 capsule by mouth daily with dinner 30 capsule 11 020 2024 Discontinued(L ist Clean-Up) ketoconazole (NIZORAL) 2 % cream as needed 021 2024 Discontinued(L ist Clean-Up) gentamicin (GARAMYCIN) injectionIndica tions:Urinary Tract Infection Use 2 mL as instructed every 24 hours To be instilled into bladder daily x 1 week. Mix with 50cc NS. Patient will need four 100 cc bags of normal saline thanks Reasons: Urinary Tract Infection 14 mL 022 2024 Discontinued(L ist Clean-Up) Tobramycin Sulfate 80 MG/2MLIndicatio ns:Recurrent Urinary Tract Infection Pt to get 6 vials of 40 [...] of injection Reasons: Recurrent Urinary Tract Infection 3 mL 023 2024 Discontinued(L ist Clean-Up) fosfomycin (Monurol) 3 g packet TAKE CONTENTS OF 1 PACKET PER PACKAGE INSTRUCTIONS ONCE FOR 1 DOSE 022 2024 Discontinued(L ist Clean-Up) nitrofurantoin monohyd macro crystals (Macrobid) 100 MG capsule TAKE 1 CAPSULE BY MOUTH TWICE A DAY WITH MORNING AND EVENING MEAL 14 capsule 023 2024 Discontinued(L ist Clean-Up) phenazopyridine (Pyridium) 200 MG tablet Take 1 (one) tablet by mouth 3 times daily as needed 30 tablet 024 2024 Discontinued(R eorder) 0.9% NaCl irrigation 0.9 % irrigation solutionIndicat ions:Recurrent UTI WILL MIX WITH ERTAPENEM (FROM SPECIALTY PHARM) FOR BLADDER INSTILLATION THROUGH SPRAY CATHETER DAILY X 10 DAYS. 500 mL 1 025 2024 Discontinued Hospital, Clinic, or Other Facility Administered Medication Ordered Dose Route Frequency Start Date End Date Status onabotulinumtoxin A (BOTOX) injection 100 UnitsIndications:Overactive Bladder 100 Units IM ONCE 02/22/2025 02/22/2025 Ended onabotulinumtoxin A (BOTOX) injection 100 UnitsIndications:Overactive Bladder 100 Units IM ONCE 02/22/2025 02/22/2025 Ended Active Problems Patient Care Coordination No te Formatting of this note migh t be different from the original. Botox rec'd and in refrigerator. Next appt August 2018. Problem Noted Date Diagnosed Date S/P laparoscopic sleeve gastrectomy 05/25/2019 Morbid obesity 05/25/2019 Recurrent cellulitis of lower extremity 12/29/19 17 RLQ abdominal pain 06/11/2016 Lymphedema of both lower extremities 01/19/2016 Mixed incontinence urge and stress (male)(female ) 05/31/2014 Ankle fracture 04/17/2014 Rotator cuff (capsule) sprain 02/24/2014 Sagittal plane imbalance 02/02/2013 Injury of thoracic spinal cord 02/02/2013 Low back pain 06/27/2012 Encounters Date Type Department Care Team Description 03/03/2025 Travel 02/22/2025 10:45 AM CDT Procedure visit [facility] - GRAPHIC DESIGN MANAGER [address] [place] [phone] Terrance Snyder MD Neurogenic bladder 02/22/2025 Travel 02/15/2025 Refill [facility] - GRAPHIC DESIGN MANAGER [address] [place] [phone] Terrance Snyder MD Refill Request 12/23/2024 Travel from Last 3 Months Immunizations Immunization Administration Dates Next Due INFLUENZA VACCINE 10/07/2018 Family History Medical History Relation Name Comments Other Father vascular proble ms, chf Cancer - Breast Mother Other Mother Leukemia, throm bocytopenia Relation Name Status Comments Father Mother Social History Tobacco Use Types Packs/Day Years Used Date Smoking Tobacco: Never Smokeless Tobacco: Never Tobacco Cessation:Counseling Given: Not Answered Alcohol Use Standard Drinks/Week Comments Yes 0 (1 standard drink = 0.6 oz pur e alcohol) rare PHQ-2 Answer Date Recorded Patient Health Questionnaire-2 Score 0 02/22/2025 Comments No Sex and Gender Information Value Date Recorded Sex Assigned at Female 10/31/2021 2:21 PM RESEARCH AGRICULTURAL ENGINEER Legal Sex Female 5:52 AM RESEARCH AGRICULTURAL ENGINEER Gender Identity Female Sexual Orientation Straight 10/31/2021 2: 21 PM RESEARCH AGRICULTURAL ENGINEER Last Filed Vital Signs Vital Sign Reading Time Taken Comments Blood Pressure 122/84 02/22/2025 10:36 AM CDT Pulse 66 03/23/2024 9:52 AM CDT Temperature 36.4 C (97.6 F) 07/24/2024 12:17 PM CDT Respiratory Rate 16 08/21/2021 3:34 PM CDT Oxygen Saturation 100% 08/21/2021 3:34 PM CDT Inhaled Oxygen Concentration - - Weight 79.4 kg (175 lb) 02/22/2025 10:36 AM CDT Height 157.5 cm (5' 2 ) 02/22/2025 10:36 AM CDT Body Mass Index 32.01 02/22/2025 10:36 AM CDT Plan of Treatment Upcoming Encounters Date Type Department Care Team (Late st Contact Info) Description 05/31/2025 10:45 AM CDT Procedure visit [facility] - GRAPHIC DESIGN MANAGER [address], [facility] [address] [place] [address] Terrance Snyder MD [address] [facility] [address] [place] [address] Health Maintenance Due Date Last Done Comments COLON MONITORING 1950 CT COLONOGRAPHY - COLON CA SCREENING 1952 FIT - COLON CA SCREENING 1950 FLEX SIG - COLON CA SCREENING 1952 LIPID TESTING 1950 HEPATITIS C SCREENING 03/07/1970 DTAP/TDAP/TD VACCINES (1 - Tdap) 1971 PNEUMOCOCCAL VACCINE 50+ (1 of 1 - PCV) 2002 ZOSTER VACCINE (1 of 2) 2002 MAMMOGRAM 06/21/2019 06/21/2017, 03/18/2014 SCREENING FOR DIABETES 05/26/2022 9, 05/26/2019, 05/25/2019, Additional history exists COVID-19 VACCINE ( season) 2024 07/22/2024, 09/06/2022, 08/30/2021, Additional history exists MEDICARE AWV CALENDAR YEAR 2024 INFLUENZA VACCINE (Season Ended) 2025 07/29/2022, 08/01/2021, 06/27/2020, Additional history exists COLOGUARD (AGES 45-75) - COLON CA SCREENING 08/18/2026 08/18/2023, 07/24/2019 Respiratory Syncytial Virus (RSV) Vaccine Pt: or over 60 yrs (1 - 1-dose 75+ series) 2027 COLONOSCOPY - COLON CA SCREENING 07/26/2032 07/26/2022 Colorectal Cancer Screening 07/26/2032 BONE DENSITY TESTING Completed 06/21/2017 DEPRESSION SCREENING Completed 02/22/2025 HEPATITIS B VACCINE Aged Out No longe r eligible based on patient's age to complete this topic HIB VACCINE Aged Out No longer eligi ble based on patient's age to complete this topic HPV VACCINE Aged Out No longer eligi ble based on patient's age to complete this topic MENINGOCOCCAL (Group B) VACCINE SHARED DECISION-MAKING Aged Out No longer eligible based on patient's age to complete this topic MENINGOCOCCAL GROUPS A/C/Y/W VACCINE Aged Out No longer eligible based on patient's age to complete this topic Procedures Procedure Name Priority Date/Time Associated Diagnosis Comments MI CYSTOSCOPY CHEMODENERVATION Routine 02/22/2025 1:08 PM CDT Neurogenic bladder BASIC METABOLIC PANEL (CALCIUM TOTAL) AM Draw 05/26/2019 3:18 AM CDT from Last 3 Months or Most Recently Relevant to Health Maintenance Results * MI CYSTOSCOPY CHEMODENERVATION (02/22/2025 1:08 PM CDT) Narrative Terrance Snyder MD - 02/22/2025 1:08 PM CDT Terrance Snyder MD 02/23/2025 8:42 AM Intravesical Botox Procedure Note Surgeon: Claudio Her overactive bladder has had a significant on her life and activities of daily living, including: Limiting exercise or physical activity, Need for pads or protective garments, and Loss of social interactions due to incontinence PRIOR BOTOX: more than 10 LAST BOTOX: 10/2024 EFFECTIVENESS OF LAST BOTOX: excellent NEXT BOTOX DATE: plan 6-12 months, to be determined by patient response Preoperative diagnosis: Overactive bladder Postoperative diagnosis: Same Procedures performed: Cystoscopic Chemodenervation with intravesical Botox injection - CPT 18713 Anesthesia: Local Operative Note: After verbal and written consent, the bladder was drained and UA negative for infection. The bladder was instilled with local anesthetic. This was held by the patient for 25 minutes. Cystoscopy was performed. A rigid, 30 degree cystoscope was inserted. The bladder was examined and found to be without lesions, tumors, or masses. The trigone was normal withmild metaplasia. Both ureteral orifices were normal. The internal urethral meatus was normal. OnabotulinumtoxinA (BOTOX ) 200 Units was mixed gently and carefully into 20 mL of preservative-free 0.9% Sodium Chloride Injection, GROUP HOME, for sterile injection into the bladder. The mixture was gently handled to ensure no breakdown of active agent within the mix. One of the 100 unit botox was provided by patient The other 100u botox was provided by the office The injection needle was filled (primed) with approximately 1 mL of reconstituted BOTOX prior to the injection to remove any air. A rigid cystoscope was gently inserted into the urinary bladder via the urethra. Cystourethroscopy was performed to examine the lower urinary tract. The trigone was identified and evaluated. Next, I identified template injection sites within the urinary bladder. The bladder was only distended to 100-mL volume to ensure adequate muscle wall thickness to prevent needle penetration beyond the muscle wall. The bladder was instilled with enough saline to achieve adequate visualization for the injections. Careful injections were undertaken for a total of 20 injections using a FINXI 23G cystoscopic precision injection needle. 1.0-mL volume was delivered at each site carefully into the muscle without excessive bleb formation submucosally. The needle was inserted approximately 2 mm into the detrusor. Injections were spaced approximately 1 cm apart. Targeted zones were injected. The procedure was well tolerated without complications. Antibiotic instructions were given. Instructions were given to call the office immediately for bloody urine, difficulty urinating, urinary retention, painful or frequent urination, fever, chills, nausea, vomiting, or other illness. The patient stated that she understood these instructions and would comply with them. She will follow up with a call/[employer] message in 2 weeks if issues. Terrance Snyder MD SEE [facility] FOR MEDICATION / BOTOX INFORMATION Specimens: none Complications: none EBL: Minimal per 12 week interval, she uses 12 catheter bags and 9 wiley catheters Terrance Snyder MD PROCEDURE/MINOR SURGICAL ORDERABLES Edited Result - Final * (ABNORMAL) BASIC METABOLIC PANEL (CALCIUM TOTAL) (05/26/2019 3:18 AM CDT) Glucose 184(H) 74 - 106 mg/dL 05/26/2019 3:52 AM CDT [facility] Sodium 135(L) 136 - 145 mmol/L 05/26/2019 3:52 AM CDT [facility] Potassium 4.3 3.5 - 5.1 mmol/L 05/26/2019 3:52 AM CDT [facility] Chloride 99 98 - 107 mmol/L 05/26/2019 3:52 AM CDT [facility] CO2 27 23 - 31 mmol/L 05/26/2019 3:52 AM CDT [facility] Calcium 8.6 8.4 - 10.2 mg/dL 05/26/2019 3:52 AM CDT [facility] Anion Gap 9 8 - 16 mmol/L 05/26/2019 3:52 AM CDT [facility] BUN 14 9.8 - 20.1 mg/dL 05/26/2019 3:52 AM CDT [facility] Creatinine 0.65 0.55 - 1.02 mg/dL 05/26/2019 3:52 AM CDT [facility] eGFR by MDRD >60 >60 mL/min/1.7 3m2 05/26/2019 3:52 AM CDT [facility] eGFR by MDRD >60 >60 mL/min/1.7 3m2 05/26/2019 3:52 AM CDT [facility] Blood BLOOD SPECIMEN / Unknown Venipuncture / Unknown 05/26/2019 3:18 AM CDT 05/26/2019 3:32 AM CDT us Anil Argueta MD LAB - CHEMISTRY ORDERABLES Fi nal Result [facility] [address] [place] [address] from Last 3 Months or Most Recently Relevant to Health Maintenance Insurance [facility] AETNA MEDICARE ADV AETNA Advance Directives * Full Code (Latest Code Status on File) Date Activated Date Inactivated Comments 05/25/2019 7:17 PM 05/26/2019 5:29 PM Care Teams Oracle Forms Developer Relationship Specialty Start Date End Date Keith Gentile MD [address] [phone] PCP - General 02/26/18
--- OUTSIDE RECORDS SUMMARY | 2025-03-12 13:29 | XMS_ITS | Encounter Summary ---
Author Organization [facility] Address 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 [address] [place] [phone] Keith Gentile MD [address] [facility] [address] [place] [address] documented as of this encounter Visit Diagnoses Diagnosis Acquired spondylolisthesis- Primary documented in this encounter Additional Health Concerns Infection Onset Date Last Indicated Resolved Time R/O COVID-19 05/03/2022 05/03/2022 05/10/2022 1:16 AM CDT documented as of this encounter Care Teams Php Developer Relationship Specialty Start Date End Date Keith Gentile MD [address] [phone] PCP - General Internal Medicine 03/22/15 documented as of this encounter
--- OUTSIDE RECORDS SUMMARY | 2025-03-12 13:29 | XMS_ITS | Encounter Summary ---
Author Organization [facility] Address [address] [place] [address] Care Team Providers Care Mixed Livestock Farm Worker Name Role Phone Keith Gentile MD Primary Care Provider [phone] Encounter Details Date Type Department Care Team (Latest Contact Info) Description 03/04/2001 Inpatient Historical [facility] Brett Cleary MD NO ADDRESS ON FILE Displacement of lumbar intervertebral disc without myelopathy (Primary Dx) Social History Tobacco Use Types Packs/Day Years Used Date Smoking Tobacco: Never Assessed Comments Unknown Sex and Gender Information Value Date Recorded Sex Assigned at Female 07/24/2024 7:16 PM CDT Legal Sex Female 4:55 AM TEST 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 [place] [address] Keith Gentile MD [address] [place] [address] documented as of this encounter Visit Diagnoses Diagnosis Displacement of lumbar intervertebral disc without myelopathy- Primary documented in this encounter Additional Health Concerns Infection Onset Date Last Indicated Resolved Time R/O COVID-19 05/03/2022 05/03/2022 05/10/2022 1:16 AM CDT documented as of this encounter Care Teams Mixed Livestock Farm Worker Relationship Specialty Start Date End Date Keith Gentile MD [address] [phone] PCP - General Internal Medicine 03/22/15 documented as of this encounter
--- OUTSIDE RECORDS SUMMARY | 2025-03-12 13:29 | XMS_ITS | Encounter Summary ---
Author Organization [facility] Address [address] [place] [address] Care Team Providers Care Otter Trawler Boatswain Name Role Phone Keith Gentile MD Primary Care Provider [phone] Encounter Details Date Type Department Care Team (Latest Contact Info) Description 07/31/2004 Inpatient Historical [facility] Brett Cleary MD NO ADDRESS ON FILE ACQ SPONDYLOLISTHESIS (Primary Dx) Social History Tobacco Use Types Packs/Day Years Used Date Smoking Tobacco: Never Assessed Comments Unknown Sex and Gender Information Value Date Recorded Sex Assigned at Female 07/24/2024 7:16 PM CDT Legal Sex Female 4:55 AM NEW MEDIA STRATEGIST Gender Identity Female 07/24/2024 7:16 PM CDT Sexual Orientation Straight 07/24/2024 7: 16 PM CDT documented as of this encounter Plan of Treatment Upcoming Encounters Date Type Department Care Team (Late st Contact Info) Description 08/16/2025 11:00 AM CDT Office Visit [facility] Primary Care - [facility] [address] [place] [phone] Keith Gentile MD [address] [facility] [address] [place] [address] documented as of this encounter Visit Diagnoses Diagnosis Acquired spondylolisthesis- Primary documented in this encounter Additional Health Concerns Infection Onset Date Last Indicated Resolved Time R/O COVID-19 05/03/2022 05/03/2022 05/10/2022 1:16 AM CDT documented as of this encounter Care Teams Otter Trawler Boatswain Relationship Specialty Start Date End Date Keith Gentile MD [address] [place] [phone] PCP - General Internal Medicine 03/22/15 documented as of this encounter
--- OUTSIDE RECORDS SUMMARY | 2025-03-12 13:29 | XMS_ITS | Encounter Summary ---
Author Organization [facility] Address [address] [place] [address] Care Team Providers Care Material Mover Name Role Phone Keith Gentile MD Primary Care Provider [phone] Encounter Details Date Type Department Care Team (Late st Contact Info) Description 05/08/2000 Outpatient Historical [facility] Internal Medicine - [place] [address] [place] [address] [place] [address] [place] [address] Social History Tobacco Use Types Packs/Day Years Used Date Smoking Tobacco: Never Assessed Comments Unknown Sex and Gender Information Value Date Recorded Sex Assigned at Female 07/24/2024 7:16 PM CDT 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 [place] [address] Keith Gentile MD [address] [facility] [address] [place] [address] documented as of this encounter Visit Diagnoses Not on filedocumented in this encounter Additional Health Concerns Infection Onset Date Last Indicated Resolved Time R/O COVID-19 05/03/2022 05/03/2022 05/10/2022 1:16 AM CDT documented as of this encounter Care Teams Material Mover Relationship Specialty Start Date End Date Keith Gentile MD [address] [place] [phone] PCP - General Internal Medicine 03/22/15 documented as of this encounter
--- OUTSIDE RECORDS SUMMARY | 2025-03-12 13:29 | XMS_ITS | Encounter Summary ---
Author Organization [facility] Address [address] [place] [address] Care Team Providers Care Rehanger Name Role Phone Keith Gentile MD Primary Care Provider [phone] Encounter Details Date Type Department Care Team (Late st Contact Info) Description 07/10/2004 Outpatient Historical [facility] Support Serv. (Adt Cardiology-[facility]) [address] 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 [facility] [address] [place] [address] Keith Gentile MD [address] [facility] [address] [place] [address] documented as of this encounter Visit Diagnoses Not on filedocumented in this encounter Additional Health Concerns Infection Onset Date Last Indicated Resolved Time R/O COVID-19 05/03/2022 05/03/2022 05/10/2022 1:16 AM CDT documented as of this encounter Care Teams Rehanger Relationship Specialty Start Date End Date Keith Gentile MD [address] [place] [address] PCP - General Internal Medicine 03/22/15 documented as of this encounter
--- OUTSIDE RECORDS SUMMARY | 2025-03-12 13:29 | XMS_ITS | Encounter Summary ---
Author Organization [facility] Address 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 MD Brett Cleary MD NO ADDRESS ON FILE SPONDYLOLISTHESIS (Primary Dx) Social History Tobacco Use Types Packs/Day Years Used Date Smoking Tobacco: Never Assessed Comments Unknown Sex and Gender Information Value Date Recorded Sex Assigned at Female 07/24/2024 7:16 PM CDT 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 [address] [place] [address] Keith Gentile MD [address] [place] [address] documented as of this encounter Visit Diagnoses Diagnosis Congenital spondylolisthesis- Primary documented in this encounter Additional Health Concerns Infection Onset Date Last Indicated Resolved Time R/O COVID-19 05/03/2022 05/03/2022 05/10/2022 1:16 AM CDT documented as of this encounter Care Teams Business Administration Program Chair Relationship Specialty Start Date End Date Keith Gentiel MD [address] [place] [address] PCP - General Internal Medicine 03/22/15 documented as of this encounter
--- OUTSIDE RECORDS SUMMARY | 2025-03-12 13:29 | XMS_ITS | Encounter Summary ---
Author Organization [facility] Address [address] [place] [address] Care Team Providers Care Boss Miner Name Role Phone Keith Gentile MD Primary Care Provider [phone] Encounter Details Date Type Department Care Team (Late st Contact Info) Description 12/21/2003 Outpatient Historical [facility] Internal Medicine - [place] [address] [place] [address] [place] [address] [place], [place] Social History Tobacco Use Types Packs/Day Years Used Date Smoking Tobacco: Never Assessed Comments Unknown Sex and Gender Information Value Date Recorded Sex Assigned at Female 07/24/2024 7:16 PM CDT 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 [place] [address] [place] [address] Keith Gentile MD [address] [facility] [address] [place] [address] documented as of this encounter Visit Diagnoses Not on filedocumented in this encounter Additional Health Concerns Infection Onset Date Last Indicated Resolved Time R/O COVID-19 05/03/2022 05/03/2022 05/10/2022 1:16 AM CDT documented as of this encounter Care Teams Boss Miner Relationship Specialty Start Date End Date Keith Gentile MD [address] [place] [address] PCP - General Internal Medicine 03/22/15 documented as of this encounter
--- OUTSIDE RECORDS SUMMARY | 2025-03-12 13:29 | XMS_ITS | Encounter Summary ---
Author Organization [facility] Address 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 [place] [address] Keith Gentile MD [address] [place] [address] documented as of this encounter Visit Diagnoses Diagnosis Postlaminectomy syndrome, lumbar region- Primary documented in this encounter Additional Health Concerns Infection Onset Date Last Indicated Resolved Time R/O COVID-19 05/03/2022 05/03/2022 05/10/2022 1:16 AM CDT documented as of this encounter Care Teams Core Measures Abstractor Relationship Specialty Start Date End Date Keith Gentile MD [address] [place] [phone] PCP - General Internal Medicine 03/22/15 documented as of this encounter
--- OUTSIDE RECORDS SUMMARY | 2025-03-12 13:29 | XMS_ITS | Encounter Summary ---
Author Organization [facility] Address 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 Primary Care - [facility], [address] [place] [address] Keith Gentile MD [address] [facility] [address] [place] [address] documented as of this encounter Visit Diagnoses Diagnosis Follow-up examination, following other surgery- Primary documented in this encounter Additional Health Concerns Infection Onset Date Last Indicated Resolved Time R/O COVID-19 05/03/2022 05/03/2022 05/10/2022 1:16 AM CDT documented as of this encounter Care Teams Hops Farmworker Relationship Specialty Start Date End Date Keith Gentile MD [address] [place] [phone] PCP - General Internal Medicine 03/22/15 documented as of this encounter
--- OUTSIDE RECORDS SUMMARY | 2025-03-12 13:29 | XMS_ITS | Encounter Summary ---
Author Organization [facility] Address [address] [place] [address] Care Team Providers Care Distribution Operation Supervisor Name Role Phone Keith Gentile MD Primary Care Provider [phone] Encounter Details Date Type Department Care Team (Late st Contact Info) Description 07/14/2004 Outpatient Historical [facility] Internal Medicine - [place] [address] [place] [address] [place] [address] [place] [address] Social History Tobacco Use Types Packs/Day Years Used Date Smoking Tobacco: Never Assessed Comments Unknown Sex and Gender Information Value Date Recorded Sex Assigned at Female 07/24/2024 7:16 PM CDT 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 Gender Identity Female 07/24/2024 7:16 PM CDT Sexual Orientation Straight 07/24/2024 7: 16 PM CDT documented as of this encounter Last Filed Vital Signs Vital Sign Reading Time Taken Comments Blood Pressure 110/68 07/14/2004 2:00 PM CDT Pulse 66 07/14/2004 2:00 PM CDT Temperature - - Respiratory Rate - - Oxygen Saturation - - Inhaled Oxygen Concentration - - Weight 91.2 kg (201 lb) 07/14/2004 2:00 PM CDT Height - - Body Mass Index - - documented in this encounter Plan of Treatment Upcoming Encounters Date Type Department Care Team (Late st Contact Info) Description 08/16/2025 11:00 AM CDT Office Visit [facility] Primary Care - [facility], [place] [place] [address] [address] [place] [address] Keith Gentile MD [address] [place] [address] documented as of this encounter Visit Diagnoses Not on filedocumented in this encounter Additional Health Concerns Infection Onset Date Last Indicated Resolved Time R/O COVID-19 05/03/2022 05/03/2022 05/10/2022 1:16 AM CDT documented as of this encounter Care Teams Distribution Operation Supervisor Relationship Specialty Start Date End Date Keith Gentile MD [address] [place] [address] PCP - General Internal Medicine 03/22/15 documented as of this encounter
--- OUTSIDE RECORDS SUMMARY | 2025-03-12 13:29 | XMS_ITS | Encounter Summary ---
Author Organization [facility] Address [address] [place] [address] Care Team Providers Care Rehabilitation Therapy Technician Name Role Phone Keith Gentile MD Primary Care Provider [phone] Encounter Details Date Type Department Care Team (Late st Contact Info) Description 07/10/2004 Outpatient Historical [facility] Support Serv. (Adt Cardiology-[facility]) [address] 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 [facility] [address] [place] [address] Keith Gentile MD [address] [facility] [address] [place] [address] documented as of this encounter Visit Diagnoses Not on filedocumented in this encounter Additional Health Concerns Infection Onset Date Last Indicated Resolved Time R/O COVID-19 05/03/2022 05/03/2022 05/10/2022 1:16 AM CDT documented as of this encounter Care Teams Rehabilitation Therapy Technician Relationship Specialty Start Date End Date Keith Gentile MD [address] [place] [address] PCP - General Internal Medicine 03/22/15 documented as of this encounter
--- OUTSIDE RECORDS SUMMARY | 2025-03-12 13:29 | XMS_ITS | Encounter Summary ---
Author Organization [facility] Address [address] [place] [address] Care Team Providers Care Clinical Recruiter Name Role Phone Keith Gentile MD Primary Care Provider [phone] Encounter Details Date Type Department Care Team (Late st Contact Info) Description 07/13/2005 Outpatient Historical [facility] Support Serv. (Adt Cardiology-[facility]J) [address] 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 [facility] [address] [place] [address] Keith Gentile MD [address] [facility] [address] [place] [address] documented as of this encounter Visit Diagnoses Not on filedocumented in this encounter Additional Health Concerns Infection Onset Date Last Indicated Resolved Time R/O COVID-19 05/03/2022 05/03/2022 05/10/2022 1:16 AM CDT documented as of this encounter Care Teams Clinical Recruiter Relationship Specialty Start Date End Date Keith Gentile MD [address] [place] [address] PCP - General Internal Medicine 03/22/15 documented as of this encounter
--- OUTSIDE RECORDS SUMMARY | 2025-03-12 13:29 | XMS_ITS | Encounter Summary ---
Author Organization [facility] Address 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 [place] [address] Keith Gentile MD [address] [place] [address] documented as of this encounter Visit Diagnoses Diagnosis Postlaminectomy syndrome, lumbar region- Primary documented in this encounter Additional Health Concerns Infection Onset Date Last Indicated Resolved Time R/O COVID-19 05/03/2022 05/03/2022 05/10/2022 1:16 AM CDT documented as of this encounter Care Teams Framer Relationship Specialty Start Date End Date Keith Gentile MD [address] [place] [phone] PCP - General Internal Medicine 03/22/15 documented as of this encounter
--- OUTSIDE RECORDS SUMMARY | 2025-03-12 13:29 | XMS_ITS | Encounter Summary ---
Author Organization [facility] Address 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 [place] [address] Keith Gentile MD 1000 [facility] [address]. [address] [place] [address] documented as of this encounter Visit Diagnoses Not on filedocumented in this encounter Additional Health Concerns Infection Onset Date Last Indicated Resolved Time R/O COVID-19 05/03/2022 05/03/2022 05/10/2022 1:16 AM CDT documented as of this encounter Care Teams Ceramics Engineer Relationship Specialty Start Date End Date Keith Gentile MD [address] [place] [phone] PCP - General Internal Medicine 03/22/15 documented as of this encounter
== END 2025-03-12 13:26 | disposition home or self-care (01) ==
DX: Z12.31 Encounter for screening mammogram for malignant neoplasm of breast (principal)
CPT/HCPCS: 77063; 77067